=== PATIENT | male | born 1955 | race Caucasian/White ===

== ENCOUNTER 2018-12-18 15:00 | Outpatient (RCR) | payer BC, SELFPAY ==
--- NOTE | 2018-11-25 15:46 | HP.PTEVAL ---
Patient's Visit Information SHEA MULLIGAN is a 63 year old M referred to Physical Therapy by RON WILSON with a diagnosis of R tKA. Date of Evaluation: 11/25/18 Physical Therapist: Jose Roberto Ramos, GISELLAT, OCS, CSCS - Visit Plan Frequency: 3x /Week Duration: 4-6 Weeks Plan: 3x/week for 3-6 weeks for : 1. patellar mobs and R knee ROM, stretch HS and quads. 2. R knee strength and progression of gait/steps. 3. ice as needed. 4. 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 - Subjective Findings: Had R TKA 11/10 at [facility] Dr. Wilson. Had bone on bone degeneration and causing pain. It si OK now. Pain is way down R knee. Bending hurts 11/22 but comfy at rest.Sleeping OK now but was up at first. HEP: SAQ, SLR, HS, LAQ, heel raises standing, stadning hip ex. Using wh walker to get around most of time, uses it for balance. Has cane at home. Dresses self, bathroom I. 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 Needs to be on feet all day at work. Hobbies include taking care of the yard. Has steps at home doing just L leg. - Pain R knee Pain Intensity (Out of 10): 0 Pain Intensity Range: 0, 3 - Objective Walks with wh walker I needing VC to bend R knee at swing. Using cane needs cues to put in L hand but mod I, without AD on firm flat surface does well adn I. FGA performed see score. Steps are using L only and needs rail. R knee AROM 85( 95 aftter h) eel slides and 0 adn L knee 0-106, patella stiff on R side inferior . HIP adn nkle aROM WFL B, tightness in B HS adn B gastroc present. Strength in hips 4/5 B. knee ext 3+R and 4 L, HS 3+ R adn 4 L. ankles 4+ B in all directions. incision has a couple steristrips in place, is dry and healing well, no signs of excessive heat or swelling. - homans. Transfers table and chair I with UE. 5 degree lag with SLR today on R. - Balance Scores Functional Gait Assessment Score: 23 % Disability: 23.3400 - Goals Goal 1:: AROM 0-115 R knee to make steps easier Goal Time Frame: 4-6 Weeks Goal 2:: Steps reciprocal without rail Goal Time Frame: 4-6 Weeks Goal 3:: Pt feel back to 90% of activity and ready to tolerate working on feet all day. Goal Time Frame: 4-6 Weeks Goal 4:: Community walking without AD Goal Time Frame: 2-4 Weeks - Rehabilitation Potential Physical Therapy Diagnosis: s/p R TKA Rehabilitation Potential: Good - Anticipated Interventions Patient/Client Instruction: Educate patient on: Condition, Plan of Care For the Purpose of:: To decrease pain, To increase ROM, To improve nutrient delivery to tissue, To increase tolerance to activity/condition/position Therapeutic Exercise to Include: Strength training, Balance training, Flexibilty training, Gait and locomotor training, Passive ROM, Active ROM For the Purpose of:: To decrease pain, To improve muscle performance and motor function, To increase tolerance to activity/condition/position, To improve ability of physical actions for home/community/work/leisure Manual Therapy Techniques to Include: Mobilization, Passive ROM For the Purpose of:: To increase ROM Cryotherapy (ice pack, ice massage): Yes For the Purpose of:: To decrease swelling/inflammation Thank you for the opportunity to evaluate your patient. For Medicare and Medicare HMO plans, please review the plan of care and approve it. It will need to be FAXED BACK to us at [phone] for Medicare purposes. For Medicare only, by signing this I certify the plan of care. Please let me know if there are questions or concerns regarding this plan of care. Physician Signature: Date:
--- NOTE | 2018-12-18 15:58 | HP.PTDCSUM ---
HP - PT D/C Summary It has been my pleasure to treat SHEA MULLIGAN under orders from RON WILSON, for the diagnosis of R tKA for a total of 9 visit(s). Discharge Date: Please see the following information for a summary of their discharge status. - Subjective Subjective: Not much pain 10/22. Sleeping OK but it aches at night. Taking arthritis pain meds. No AD at home. Sometimes out adn about. Wants to do more yardwork. Basic ADLs are I. Doing ex daily at home. - Pain R knee Pain Intensity (Out of 10): 0 - Overall Improvement % Improvement: 90 - Objective Objective/Function: 0-115 AROM. 4+/5 stretngth. Good patellar mobility,s lightly stiff up and down. Walks well with slight R trendelenberg. steps are reciprocal without rail up and down is slightly more safe with one rail. DOING WELL, WANTS TO BE DONE WITH PT AND DOING WELL ENOUGH FOR THIS TO HAPPEN. WILL COTNINUE STRENGTH AT HOME IN PREP FOR RETURN TO WORK. - Goals Goal 1:: AROM 0-115 R knee to make steps easier Goal Progress: Goal Met Goal 2:: Steps reciprocal without rail Goal Progress: up ascend, OK, Goal 3:: Pt feel back to 90% of activity and ready to tolerate working on feet all day. Goal Progress: Progressing Goal 4:: Community walking without AD Goal Progress: Goal Met - Plan Plan: D/C(pt request). He is ready to be done. - D/C Information If there are questions or concerns regarding this patient's physical therapy, please feel free to call me at [phone]. Thank you for the referral of this patient. Sincerely, Jose Roberto Ramos, DPT, OCS, CSCS
== END 2018-12-18 17:00 | disposition home or self-care (01) ==
LOC: PT 15:00
PROVIDERS: Family Provider Nurse Practitioner Primary Care; PCP Nurse Practitioner Primary Care
DX: Z47.1 Aftercare following joint replacement surgery (principal)
CPT/HCPCS: 97110; 97162; 97530

== ENCOUNTER 2021-07-14 13:30 | Inpatient (IN) | payer MEDICARE, SELFPAY ==
[2021-07-14] VITALS (18 sets, daily range): BP systolic 85–130; BP diastolic 64–97; PULSE 78–122; RESP 21–31; TEMP 36.1–37.1; O2SAT 91–97; BMI 31.8; BMI 32.7
--- NOTE | 2021-07-14 13:46 | EKG12_ITS ---
Test Reason : CP Blood Pressure : / mmHG Vent. Rate : 115 BPM Atrial Rate : 115 BPM P-R Int : 138 ms QRS Dur : 082 ms QT Int : 308 ms P-R-T Axes : 012 -37 005 degrees QTc Int : 426 ms Sinus tachycardia Left axis deviation Poor R wave progression Abnormal ECG Confirmed by ARTIE CARR, KAREN ([id number]), general expeditor NAA MART ([id number]) on 07/16/2021 1:20:35 PM Referred By: HENRIK Confirmed By:KAREN ALVA MD
--- NOTE | 2021-07-14 13:48 | EX.ED.DYSGE1 ---
HPI History of Present Illness Chief Complaint: Shortness of Breath Detail of Chief Complaint: Shortness of breath and fatigue Informant: patient Narrative Narrative: Patient presents to the emergency department stating that he started with an illness about 2 weeks ago. Patient was diagnosed with COVID-19 5 days ago. Patient complains of a cough that is mostly nonproductive. He complains of generalized fatigue and weakness. Patient not on home O2 currently. On EMS arrival patient's O2 sat was 82%. Patient has history of hypertension and history of prior left nephrectomy. Patient denies history of PE or DVT. He does complain of pain in his chest with cough. Prior similar symptoms: No PFSH [facility] Medical History (Updated 07/14/21 @ 15:[address] Goldie Younger, DO) Hypertension Allergy/AdvReac Type Severity Reaction Status Date / Time No Known Allergies Allergy Verified 07/14/21 13:44 Social History Smoking Status: Never smoker ROS ROS ED Constitutional Constitutional ED: Reports systems reviewed and no addt'l complaints, except as documented and chills; Denies body ache(s) or change in weight Eyes Eyes: Denies acute decrease in peripheral vision, change in vision, double vision or loss of vision ENT ENT ED: Reports none; Denies ear pain, lip swelling, loss taste/smell, neck pain, otalgia or sore throat Cardiovascular Cardiovascular: Reports none; Denies abdominal pain, chest pain with activity, leg edema, lightheadedness, palpitations, rapid heart rate or syncope Respiratory/Chest Respiratory/Chest: Reports none, cough and dyspnea; Denies change in mental status, dry cough, hemoptysis, shortness of breath at rest or shortness of breath with exertion Gastrointestinal Gastrointestinal: Reports none; Denies abdominal pain, change in stool character, diarrhea, hematemesis, hematochezia, melena, rectal bleeding or vomiting Genitourinary Genitourinary ED: Reports none; Denies abdominal discomfort, anuria, dysuria, genital pain or polyuria Musculoskeletal Musculoskeletal: Reports none and myalgias; Denies arthralgias, back pain, difficulty walking, extremity pain or muscle weakness Integumentary Reports none; Denies abscess or rash Neurologic Neurologic: Reports none, headache(s) and weakness; Denies abnormal gait, confusion, focal weakness, frequent falls, loss of vision, numbness, paresthesias, radicular pain or vertigo Psychiatric Psychiatric: Reports systems reviewed and no addt'l complaints, except as documented and none; Denies behavioral changes, confusion, difficulty concentrating, hallucinations, suicidal ideation, tactile hallucinations or visual hallucinations Endocrine Endocrinology: Denies none, cold intolerance, excessive sweating, fatigue or heat intolerance Hematologic/Lymphatic Hematologic/Lymphatic: Reports none; Denies anemia, easy bleeding or easy bruising Allergic/Immunologic Allergic/Immunologic ED: Denies as per HPI, none, lip swelling, mouth swelling, throat swelling, tongue swelling or hives EXAM Physical Exam Const Vital Signs: 07/14/21 13:40 07/14/21 13:46 Temperature 98.6 F Temperature Source Temporal Pulse Rate 116 H Respiratory Rate 26 H Respiratory Effort Short of Breath Respiratory Pattern Tachypnea Blood Pressure 109/65 Blood Pressure Mean 79 Pulse Ox 93 Oxygen Delivery Method Non-Rebreather Oxygen Flow Rate (L/min) 15 Positive well nourished and well developed General Appearance ED: well developed and NAD HEENT Reports TM's clear and moist mucous membranes normocephalic and atraumatic; Negative for trauma or tenderness Tympanic Membrane ED: Yes TM's clear Eyes PERRL and EOMs intact bilaterally General Eye ED: Negative for pale conjunctiva or scleral icterus Neck no lymphadenopathy, supple and no JVD General: Negative for tenderness Chest Wall inspection of chest normal and palpation of chest normal Chest: Negative for tenderness Resp normal respiratory effort and clear to auscultation bilaterally Resp Narrative: Mild tachypnea Effort and Inspection: Negative for respiratory distress or pain with movement Auscultation: Negative for rhonchi, wheezes or diminished lung sounds Cardio regular rate, regular rhythm, S1 normal heart sound, S2 normal heart sound and no murmurs Rate: tachycardic Peripheral Pulses: pulses 2+ throughout GI normal to inspection, nondistended, normoactive bowel sounds, soft to palpation, non-tender, non-distended and no masses Back/Spine no CVA tenderness and no thoracic nor lumbar tenderness Extremity normal to inspection General Extremety ED: Negative for edema General Extremity: Negative for edema Neuro oriented x3, CN's II-XII intact bilaterally, no sensory deficits noted and gait normal Sensorium / Orientation: awake, alert, oriented to person, oriented to place and oriented to time Motor Exam: strength 5/5 throughout and strength abnormal Psych mental status grossly normal Skin no rashes or lesions noted and no wounds MDM MDM MDM Narrative Medical decision making narrative: Case discussed with hospitalist will evaluate patient for admission to ICU. Patient on a nonrebreather satting 91 to 92%. Lab Data Attestation: I reviewed the patient's lab results. Labs: Laboratory Results - last 24 hr 07/14/21 07/14/21 07/14/21 13:40 13:40 13:40 WBC 8.0 RBC 4.52 L Hgb 13.9 Hct 43.0 MCV 95.1 H MCH 30.8 MCHC 32.3 RDW Std Deviation 49.1 H RDW Coeff of Uli 13.9 Plt Count 269 MPV 10.5 Immature Gran % (Auto) 1.100 H Neut % (Auto) 84.2 H Lymph % (Auto) 7.7 L Morgan % (Auto) 6.9 Eos % (Auto) 0.0 Baso % (Auto) 0.1 Absolute Neuts (auto) 6.8 Absolute Lymphs (auto) 0.62 L Nucleated RBC % 0 Differential Comment SCANNED Reactive Lymphocytes 1+ D-Dimer Quant (PE/DVT) Cancelled Sodium Cancelled Potassium Cancelled Chloride Cancelled Carbon Dioxide Cancelled Anion Gap Cancelled BUN Cancelled Creatinine Cancelled Estim Creat Clear Calc Cancelled Est GFR (MDRD) Af Amer Cancelled Est GFR (MDRD) Non-Af Cancelled BUN/Creatinine Ratio Cancelled Glucose Cancelled Lactic Acid Calcium Cancelled 07/14/21 07/14/21 07/14/21 13:40 14:23 14:23 WBC RBC Hgb Hct MCV MCH MCHC RDW Std Deviation RDW Coeff of Uli Plt Count MPV Immature Gran % (Auto) Neut % (Auto) Lymph % (Auto) Morgan % (Auto) Eos % (Auto) Baso % (Auto) Absolute Neuts (auto) Absolute Lymphs (auto) Nucleated RBC % Differential Comment Reactive Lymphocytes D-Dimer Quant (PE/DVT) Cancelled Sodium 137 Potassium 5.0 Chloride 104 Carbon Dioxide 25.0 Anion Gap 8 BUN 33 H Creatinine 1.31 H Estim Creat Clear Calc 56.50 Est GFR (MDRD) Af Amer 70 Est GFR (MDRD) Non-Af 58 L BUN/Creatinine Ratio 25.2 H Glucose 100 Lactic Acid 1.5 Calcium 8.6 Radiography Diagnostic Testing: Radiology Impression Chest X-Ray 07/14/21 14:12 IMPRESSION: Bilateral airspace disease which may represent pneumonia. at 1448 Reported and signed by: Neo Gracia MD Electronically Signed: Neo Gracia MD at 14:47 EDT Tel , Service support , 1 view chest x-ray obtained in interpreted by myself as bilateral infiltrates with an elevated left hemidiaphragm. Radiology in agreement. EKG Initial EKG: Attestation: I personally reviewed and interpreted this EKG as follows: Comments: Sinus rhythm with a ventricular rate of 115 bpm Discharge Plan Triage Chief Complaint: Shortness of Breath ED Provider: Goldie Younger Dx/Rx/DC Orders Clinical Impression: Pneumonia due to 2019 novel coronavirus, Hypoxemia Primary Care Provider: Silvana Langley NP Referrals: Silvana Langley NP, [employer] [Primary Care Provider] - Disposition Disposition: Acute Care Hospital [facility]
[2021-07-14 14:08] LABS: Absolute Lymphocyte Count 0.62 X10^3/uL (0.83-4.51); Absolute Neutrophil Count 6.8 X10^3/uL (2.0-7.7); Basophil# 0.01 X10^3/uL; Basophil% 0.1 % (0-1); Hemoglobin 13.9 g/dL (13.0-16.5); Lymphocyte # 0.62 X10^3/ul (0.83-4.51); Lymphocyte % 7.7 % (19-41); Mean Corp Hgb Conc 32.3 g/dL (32-36); Mean Corpuscular Hgb 30.8 pg (27.0-32.0); Mean Corpuscular Volume 95.1 fL (80-94); Mean Platelet Vol. 10.5 fl (6.2-12.0); Monocyte# 0.55 X10^3/uL; Monocyte% 6.9 % (0-10); NRBC Flagged by Analyzer 0 % (0-5); Neutrophil # 6.75 X10^3/uL (2.7-7.7); Neutrophil % 84.2 % (47-70); POSITIVE MORPHOLOGY YES; Platelet Count 269 K/mm3 (150-450); RBC Distribution Width CV 13.9 % (11.6-14.6); RBC Distribution Width SD 49.1 fl (35.1-43.9); Red Blood Count 4.52 M/mm3 (4.6-6.2)
--- NOTE | 2021-07-14 14:12 | RAD_ITS ---
EXAM: XR CHEST, 1 VIEW : 1955 CLINICAL INDICATION: dyspnea TECHNIQUE: Frontal view of the chest. This report was created using [employer] report generation technology. COMPARISON: None. FINDINGS: LUNGS AND PLEURAL SPACES: There is airspace disease seen within the right upper and left lower lobe. No pneumothorax. No effusion. HEART: Unremarkable. Cardiac silhouette not enlarged. MEDIASTINUM: Central airways and mediastinal contour are unremarkable. BONES/JOINTS: Unremarkable. SOFT TISSUES: Unremarkable. UPPER ABDOMEN: There is mild elevation of the left hemidiaphragm. RAD/Chest 1 View (Portable) IMPRESSION: Bilateral airspace disease which may represent pneumonia. at 1448 Reported and signed by: Neo Gracia MD Electronically Signed: Neo Gracia MD at 14:47 EDT Tel , Service support ,
[2021-07-14 14:13] LABS: Differential Indicated SCAN CRITERIA MET
[2021-07-14] MEDS: dexAMETHasone 4 MG Tablet 6 MG PO (14:19)
[2021-07-14] MEDS: 0.9% Normal Saline 1,000 ML 150 ML IV (14:20)
[2021-07-14 14:39] LABS: Lactic Acid 1.5 mmol/L (0.4-1.9)
[2021-07-14 14:41] LABS: Differential Comment SCANNED; Reactive Lymphocyte 1+
[2021-07-14 14:59] LABS: Anion Gap 8 (5-15); BUN 33 mg/dL (7-18); BUN/Creat Ratio 25.2 RATIO (10-20); Calcium,Total 8.6 mg/dL (8.5-10.1); Chloride 104 mmol/L (98-107); Creatinine, Serum 1.31 mg/dL (0.70-1.30); EST Glomerular Filtration Rate 58 mL/min (>60); Est Glom Filt Rate - Afr Amer 70 mL/min (>60); Glucose 100 mg/dL (74-106); Sodium Level 137 mmol/L (136-145)
--- NOTE | 2021-07-14 15:11 | NURSING ---
DR DIVINA HOWELL
--- NOTE | 2021-07-14 15:16 | PCM.HP.STD ---
HPI - General General Date of Admission: 07/14/21 Date of Service: 07/14/21 HPI Narrative SHEA MULLIGAN, is a 65 M who presents with progressive shortness of breath ongoing for about 2 weeks. He tested positive for Covid at an outside urgent care. Patient admits to low-grade fever and chills as well as diarrhea. His is also sick. He denied any dizziness or palpitations. His oxygen saturation was 82% when the EMS picked him up. He improved on the nonrebreather mask. Chest x-ray showed bilateral airspace disease. There is elevation of the left hemidiaphragm [facility] Medical History Hypertension Allergy/AdvReac Type Severity Reaction Status Date / Time No Known Allergies Allergy Verified 07/14/21 13:44 no significant family history Surgical History (Updated 07/14/21 @ 15:[address] Erica Souza MD) H/O knee surgery History of kidney surgery Social History (Updated 07/14/21 @ 15:[address] Erica Souza MD) household members: spouse Smoking Status: Never smoker alcohol intake: never substance use type: does not use ROS ROS Narrative Constitutional: Reports: Malaise, Weakness, Fatigue, Anorexia, Chills, Fever, Denies: Night Sweats, Weight Change Eyes: Denies: Blurred vision, Cataracts, Conjunctivae Inflammation, Pain, Redness, Vision Change HEENT: Denies: Difficulty Hearing, Difficulty Swallowing, Head Aches, Hearing Changes, Sinus Congestion, Sinus Drainage Cardiovascular: Denies: Chest Pain, Orthopnea, Palpitations Respiratory: Admits to: Cough, Shortness of breath at rest, Sputum production Gastrointestinal: Admits to diarrhea denies: Abdominal Pain, Nausea, Vomiting Genitourinary: Denies: Dysuria Musculoskeletal: Denies: Joint Pain, Joint stiffness, Joint swelling, Joint Tenderness Skin: Denies: Rash, Wounds Neurological: Denies: Numbness, Tingling, Focal weakness Vital Signs Vital Signs Vital Signs: 07/14/21 13:40 07/14/21 13:46 Temperature 98.6 F Temperature Source Temporal Pulse Rate 116 H Respiratory Rate 26 H Respiratory Effort Short of Breath Respiratory Pattern Tachypnea Blood Pressure 109/65 Blood Pressure Mean 79 Pulse Ox 93 Oxygen Delivery Method Non-Rebreather Oxygen Flow Rate (L/min) 15 Weight Weight: 100.9 kg Body Mass Index (BMI) 31.8 Physical Exam Narrative Physical exam: General: Alert, Oriented x3, Cooperative, in mild respiratory distress, on 15 L of oxygen, having hiccups HEENT: Atraumatic Oral: Dry mucosa Neck: Supple Lungs: Diminished to auscultation Cardiovascular: HS I+II, regular, no murmurs Abdomen: Bowel Sounds Present, Soft, Non Tender Extremities: No edema Results Lab / Micro Data Result Diagrams: 07/14/21 13:40 07/14/21 14:23 Labs: Laboratory Results - last 24 hr 07/14/21 13:40: WBC 8.0, RBC 4.52 L, Hgb 13.9, Hct 43.0, MCV 95.1 H, MCH 30.8, MCHC 32.3, RDW Std Deviation 49.1 H, RDW Coeff of Uli 13.9, Plt Count 269, MPV 10.5, Immature Gran % (Auto) 1.100 H, Neut % (Auto) 84.2 H, Lymph % (Auto) 7.7 L, [place] % (Auto) 6.9, Eos % (Auto) 0.0, Baso % (Auto) 0.1, Absolute Neuts (auto) 6.8, Absolute Lymphs (auto) 0.62 L, Nucleated RBC % 0, Differential Comment SCANNED, Reactive Lymphocytes 1+ 07/14/21 13:40: D-Dimer Quant (PE/DVT) Cancelled 07/14/21 13:40: Sodium Cancelled, Potassium Cancelled, Chloride Cancelled, Carbon Dioxide Cancelled, Anion Gap Cancelled, BUN Cancelled, Creatinine Cancelled, Estim Creat Clear Calc Cancelled, Est GFR (MDRD) Af Amer Cancelled, Est GFR (MDRD) Non-Af Cancelled, BUN/Creatinine Ratio Cancelled, Glucose Cancelled, Calcium Cancelled 07/14/21 13:40: Lactic Acid 1.5 07/14/21 14:23: D-Dimer Quant (PE/DVT) Cancelled 07/14/21 14:23: Sodium 137, Potassium 5.0, Chloride 104, Carbon Dioxide 25.0, Anion Gap 8, BUN 33 H, Creatinine 1.31 H, Estim Creat Clear Calc 56.50, Est GFR (MDRD) Af Amer 70, Est GFR (MDRD) Non-Af 58 L, BUN/Creatinine Ratio 25.2 H, Glucose 100, Calcium 8.6 Radiology Impression Chest X-Ray 07/14/21 14:12 IMPRESSION: Bilateral airspace disease which may represent pneumonia. at 1448 Reported and signed by: Neo Gracia MD Electronically Signed: Neo Gracia MD at 14:47 EDT Tel , Service support , Assessment & Plan Assessment/Plan (1) Pneumonia due to 2019 novel coronavirus: (2) Acute respiratory failure with hypoxia: PLAN: 1. Acute hypoxic respiratory failure secondary to acute COVID-19 pneumonia Patient has been having symptoms for the past 2 weeks Diagnosed a week ago in an outside urgent care; will order rapid antigen to have a copy here Currently on 15 L of oxygen, tachypneic and tachycardic Will admit to ICU, Decadron, incentive spirometer Patient is outside the window for remdesivir Check urine Legionella, streptococcal antigen, sputum cultures Follow-up on blood cultures taken earlier Check D-dimer stat -pending 2. DVT prophylaxis Lovenox subcu I discussed and explained in details the various types of CODE STATUS-full code, DNR CCA, DNR CC. Patient chose full code. He wants aggressive care including intubation in the event of a cardiopulmonary arrest. Time spent discussing CODE STATUS 17 minutes Charges/Coding Visit Charges Inpatient E&M: 12618 Init Hosp L3 Procedures Hospitalists Procedures: 85084 Advncd Care Plan 30 Min
--- NOTE | 2021-07-14 15:17 | NURSING ---
[facility] HY[facility]XIA
--- NOTE | 2021-07-14 15:17 | NURSING ---
ICU 2
--- NOTE | 2021-07-14 16:00 | NURSING ---
Dr. Ortega made aware of Ddimer 2.0. NNO.
[2021-07-14] MEDS: ChlorproMAZINE 50 MG/2 ML Ampul 25 MG IV (16:22)
[2021-07-14] MEDS: Furosemide 40 MG/4 ML Vial IV (17:13)
[2021-07-14] MEDS: 0.9% Normal Saline 1,000 ML 50 ML IV (17:19)
[2021-07-14 17:21] LABS: BNP,B-Type NATRIURETIC PEPTIDE 22.2 pg/mL (0-100)
--- NOTE | 2021-07-14 18:08 | CT_ITS ---
STUDY: CTA CHEST REASON FOR EXAM: Male, 65 years old. pe RADIATION DOSAGE (If Supplied By Facility): CTDIvol = ( 12.65 ) mGy, DLP = ( 470.74 ) mGycm TECHNIQUE: The examination was performed with the intravenous administration of IV 100mL Isovue-370. Post-processing of the angiographic images was performed, with multiplanar reformation and 3D reconstruction. Individualized dose optimization techniques were used for this CT. COMPARISON: None. FINDINGS: Normal enhancement of the main pulmonary artery and right and left pulmonary arteries. Normal enhancement of the bilateral peripheral pulmonary arteries. There is no demonstrated pulmonary embolism. Normal thoracic aorta and visualized great vessels. There is no demonstrated aortic dissection. Normal heart and pericardium. Normal mediastinum. Normal hilar regions. Normal visualized trachea and bronchi. Bilateral patchy infiltrates and consolidations.. Normal chest wall structures. Normal osseous structures. Normal visualized upper abdomen. CT/CTA Chest W/WO Contrast IMPRESSION: No demonstrated pulmonary embolism or arterial dissection. Bilateral patchy infiltrates and consolidations. Electronically Signed: Jose Correa DO at 19:42 EDT Tel [phone], Service support ,
[2021-07-14] MEDS: Enoxaparin 30 MG/0.3 ML Syringe SC (21:05)
[2021-07-14] MEDS: guaiFENesin 10 ML UDC (200MG/10ML) PO (21:10)
[2021-07-15] VITALS (27 sets, daily range): BP systolic 98–130; BP diastolic 67–96; PULSE 61–101; RESP 17–28; TEMP 36.1–36.7; O2SAT 90–97
--- NOTE | 2021-07-15 00:34 | EKG12_ITS ---
Test Reason : EKG CHANGE Blood Pressure : / mmHG Vent. Rate : 076 BPM Atrial Rate : 076 BPM P-R Int : 138 ms QRS Dur : 082 ms QT Int : 386 ms P-R-T Axes : 019 -30 000 degrees QTc Int : 434 ms Poor data quality, interpretation may be adversely affected Normal sinus rhythm Left axis deviation Abnormal ECG When compared with ECG of 14-JUL-2021 13:39, Vent. rate has decreased BY 39 BPM Confirmed by LETY CARR, POLY ([id number]), assistant editor NAA MART ([id number]) on 07/24/2021 10:13:33 AM Referred By: KIRSTEN Confirmed By:POLY DAVIDSON MD
--- NOTE | 2021-07-15 00:58 | NURSING ---
ST elevation noted on Q4H monitor strip. EKG ordered per protocol. Pt has no c/o chest pain, no changes in SOB beyond. Compared admitting EKG and sent to Dr. Rico for analysis. No STEMI reported by physician.
[2021-07-15] MEDS: guaiFENesin 10 ML UDC (200MG/10ML) PO (01:04)
[2021-07-15 05:26] LABS: Absolute Lymphocyte Count 0.58 X10^3/uL (0.83-4.51); Absolute Neutrophil Count 3.9 X10^3/uL (2.0-7.7); Basophil# 0.02 X10^3/uL; Basophil% 0.4 % (0-1); Hematocrit 37.6 % (40-54); Hemoglobin 12.4 g/dL (13.0-16.5); Lymphocyte # 0.58 X10^3/ul (0.83-4.51); Lymphocyte % 11.7 % (19-41); Mean Corpuscular Hgb 31.2 pg (27.0-32.0); Mean Corpuscular Volume 94.7 fL (80-94); Mean Platelet Vol. 10.5 fl (6.2-12.0); Monocyte# 0.35 X10^3/uL; NRBC Flagged by Analyzer 0 % (0-5); Neutrophil % 78.5 % (47-70); POSITIVE DIFFERENTIAL YES; POSITIVE MORPHOLOGY YES; Platelet Count 247 K/mm3 (150-450); RBC Distribution Width CV 13.6 % (11.6-14.6); RBC Distribution Width SD 47.9 fl (35.1-43.9); Red Blood Count 3.97 M/mm3 (4.6-6.2)
[2021-07-15 05:27] LABS: Differential Indicated SCAN CRITERIA MET
[2021-07-15 05:44] LABS: ALB/GLOB Ratio 0.5 RATIO (0.9-2.4); AST(SGOT) 44 U/L (15-37); Alanine Aminotransfer ALT/SGPT 39 U/L (16-61); Albumin, Serum 2.1 g/dL (3.2-5.0); Alkaline Phosphatase 50 U/L (45-117); Anion Gap 6 (5-15); BUN 33 mg/dL (7-18); BUN/Creat Ratio 30.3 RATIO (10-20); Calcium,Total 8.1 mg/dL (8.5-10.1); Chloride 106 mmol/L (98-107); Creatinine, Serum 1.09 mg/dL (0.70-1.30); EST Glomerular Filtration Rate 72 mL/min (>60); Est Glom Filt Rate - Afr Amer 87 mL/min (>60); Estimated Creatinine Clearance 63.62 ml/min; Globulin 4.5 g/dL (2.2-4.2); Glucose 154 mg/dL (74-106); Potassium 4.4 mmol/L (3.5-5.1); Protein, Total 6.6 g/dL (6.4-8.2); Sodium Level 138 mmol/L (136-145)
--- NOTE | 2021-07-15 06:15 | CON.PCM.CC_ITS ---
Assessment & Plan Assessment/Plan (1) Pneumonia due to 2019 novel coronavirus: (2) Acute respiratory failure with hypoxia: PLAN: RECOMMENDATIONS: 1. Continue supplemental oxygen to maintain saturations at or above 90%. 2. Continue Decadron and Lovenox as ordered. 3. As needed diuretics to maintain euvolemic state. 4. Awake prone positioning was encouraged. 5. Encourage incentive spirometer use and mobilize patient as tolerated. IMPRESSIONS: 1. Acute hypoxemic respiratory failure secondary to COVID-19 pneumonia The patient presented to the hospital with approximately 2 weeks of progressive symptoms. CTA showed no evidence for PE. The patient is currently outside of the window for remdesivir. Plan to continue supplemental oxygen to maintain saturations at or above 90%. The patient will be continued on Decadron and Love nox as ordered. Awake prone positioning was encouraged. Intermittent use of diuretic to be entertained to maintain euvolemic state. Encourage incentive spirometer use and mobilize patient as tolerated. This note was generated with [employer] dictation software. It may contain incorrect words, spelling, and punctuation that were not noted in checking the note before signing. HPI Consult Data Date of Consult: 07/15/21 HPI Narrative Reason for Consultation: Acute hypoxemic respiratory failure secondary to COVID- 19 pneumonia HPI Narrative: The patient is a 65-year-old male, with a history as outlined below, who presented to the emergency department on July 14 with complaints of worsening dyspnea, fatigue and cough. The patient reported that his was recently ill with coronavirus. His symptoms initially began approximately 2 weeks ago. The patient is unvaccinated. He did test positive for coronavirus at an outside urgent care clinic. He does not utilize supplemental oxygen at his baseline. On presentation to the emergency department, the patient was noted to be afebrile and hemodynamically stable. D-dimer was elevated to 2.0. Chemistry profile was notable for a creatinine of 1.31. CTA chest showed no evidence for PE. Patchy bilateral airspace disease was noted. Rapid coronavirus antigen testing was positive on July 14. The patient was subsequently placed on Decadron and prophylactic Lovenox. He was admitted to the medical intensive care unit for further management. [facility] Medical History Hypertension Allergy/AdvReac Type Severity Reaction Status Date / Time No Known Allergies Allergy Verified 07/14/21 13:44 Family History no significant family his Surgical History (Updated 07/14/21 @ 15:[address] Erica Souza MD) H/O knee surgery History of kidney surgery Social History (Updated 07/14/21 @ 15:[address] Erica Souza MD) household members: spouse Smoking Status: Never smoker alcohol intake: never substance use type: does not use ROS Constitutional Constitutional: Reports chills, fatigue, malaise and weakness Eyes Eyes: Denies blurry vision or change in vision ENT HEENT: Denies dizziness, dysphagia, loss taste/smell or nasal congestion Cardiovascular Cardiovascular: Reports dyspnea; Denies chest pain or dizziness Respiratory/Chest Respiratory/Chest: Reports cough and dyspnea Gastrointestinal Gastrointestinal: Denies abdominal pain, diarrhea, nausea or vomiting Genitourinary Genitourinary: Denies difficulty urinating Musculoskeletal Musculoskeletal: Denies arthralgias, back pain or joint pain Integumentary Integumentary: Denies lesions, rash or skin ulcer Neurologic Neurologic: Denies abnormal gait or abnormal speech Psychiatric Psychiatric: Denies anxiety or depression Endocrine Endocrinology: Reports fatigue Hematologic/Lymphatic Hematologic/Lymphatic: Denies easy bleeding or easy bruising Physical Exam Const alert and no apparent distress General Appearance: cooperative Nutritional Appearance: obese HEENT normocephalic, head/scalp atraumatic and moist oral mucous membranes Eyes PERRL and EOMs intact bilaterally Neck supple General: trachea midline Chest inspection of chest normal Resp Effort and Inspection: tachypneic Auscultation: diminished lung sounds; Negative for rales, rhonchi or wheezes Cardio regular rate and regular rhythm GI normal to inspection, nondistended, normoactive bowel sounds Extremity no clubbing, cyanosis or edema Skin no rashes or lesions noted Neuro moves all extremities and no focal motor deficits Psych cooperative and affect normal Lab / Micro Data Result Diagrams: 07/15/21 05:13 07/15/21 05:13 Labs: Laboratory Results - last 24 hr 07/14/21 13:40: WBC 8.0, RBC 4.52 L, Hgb 13.9, Hct 43.0, MCV 95.1 H, MCH 30.8, MCHC 32.3, RDW Std Deviation 49.1 H, RDW Coeff of Uli 13.9, Plt Count 269, MPV 10.5, Immature Gran % (Auto) 1.100 H, Neut % (Auto) 84.2 H, Lymph % (Auto) 7.7 L , [place] % (Auto) 6.9, Eos % (Auto) 0.0, Baso % (Auto) 0.1, Absolute Neuts (auto) 6.8, Absolute Lymphs (auto) 0.62 L, Nucleated RBC % 0, Differential Comment SCANNED, Reactive Lymphocytes 1+ 07/14/21 13:40: D-Dimer Quant (PE/DVT) Cancelled 07/14/21 13:40: Sodium Cancelled, Potassium Cancelled, Chloride Cancelled, Carbon Dioxide Cancelled, Anion Gap Cancelled, BUN Cancelled, Creatinine Cancelled, Estim Creat Clear Calc Cancelled, Est GFR (MDRD) Af Amer Cancelled, Est GFR (MDRD) Non-Af Cancelled, BUN/Creatinine Ratio Cancelled, Glucose Cancelled, Calcium Cancelled 07/14/21 13:40: Lactic Acid 1.5 07/14/21 13:40: B-Natriuretic Peptide 22.2 07/14/21 14:23: D-Dimer Quant (PE/DVT) Cancelled 07/14/21 14:23: Sodium 137, Potassium 5.0, Chloride 104, Carbon Dioxide 25.0, Anion Gap 8, BUN 33 H, Creatinine 1.31 H, Estim Creat Clear Calc 56.50, Est GFR (MDRD) Af Amer 70, Est GFR (MDRD) Non-Af 58 L, BUN/Creatinine Ratio 25.2 H, Glucose 100, Calcium 8.6 07/14/21 15:00: D-Dimer Quant (PE/DVT) 2.00 H* 07/14/21 16:50: Procalcitonin 0.30 H 07/15/21 05:13: WBC 5.0, RBC 3.97 L, Hgb 12.4 L, Hct 37.6 L, MCV 94.7 H, MCH 31.2, MCHC 33.0, RDW Std Deviation 47.9 H, RDW Coeff of Uli 13.6, Plt Count 247, MPV 10.5, Immature Gran % (Auto) 2.400 H, Neut % (Auto) 78.5 H, Lymph % (Auto) 11.7 L, [place] % (Auto) 7.0, Eos % (Auto) 0.0, Baso % (Auto) 0.4, Absolute Neuts (auto) 3.9, Absolute Lymphs (auto) 0.58 L, Nucleated RBC % 0 07/15/21 05:13: Sodium 138, Potassium 4.4, Chloride 106, Carbon Dioxide 26.0, Anion Gap 6, BUN 33 H, Creatinine 1.09, Estim Creat Clear Calc 63.62, Est GFR (MDRD) Af Amer 87, Est GFR (MDRD) Non-Af 72, BUN/Creatinine Ratio 30.3 H, Glucose 154 H, Calcium 8.1 L, Total Bilirubin 0.40, AST 44 H, ALT 39, Alkaline Phosphatase 50, Total Protein 6.6, Albumin 2.1 L, Globulin 4.5 H, Albumin /Globulin Ratio 0.5 L Micro: Microbiology 07/14/21 20:15 Stool C. difficile DNA Amplification - Final 07/14/21 16:10 Mucosa - Nasopharyngeal Respiratory Panel (PCR) - Final 07/14/21 17:25 Urine, Clean Catch Legionella Antigen - Final 07/14/21 17:25 Urine, Clean Catch Streptococcus pneumoniae Antigen (M - Fi nal 07/14/21 15:54 Nasal Secretion SARS-CoV-2 Antigen (Rapid) - Final SARS-CoV-2 (COVID 19) Radiology Impression Chest X-Ray 07/14/21 14:12 IMPRESSION: Bilateral airspace disease which may represent pneumonia. at 1448 Reported and signed by: Neo Gracia MD Electronically Signed: Neo Gracia MD at 14:47 EDT Tel , Service support , Chest CTA 07/14/21 18:08 IMPRESSION: No demonstrated pulmonary embolism or arterial dissection. Bilateral patchy infiltrates and consolidations. Electronically Signed: Jose Correa DO at 19:42 EDT Tel [phone], Service support , Charges/Coding Visit Charges Inpatient E&M: 01677 Init Hosp L3
[2021-07-15 06:37] LABS: Atypical Lymphocyte RARE %; Differential Comment SCANNED
--- NOTE | 2021-07-15 07:28 | PCM.PN.HOSP ---
Subjective Subjective Patient is treated with symptoms of shortness of breath for about 2 weeks, progressively worsening low-grade fever with chills. Was tested positive for Covid in outside urgent care. Objective Data Objective Data Vital Signs: Vital Signs Temp Pulse Resp BP Pulse Ox 97.0 F L 74 20 H 124/84 H 93 07/15/21 02:00 07/15/21 06:00 07/15/21 06:00 07/15/21 06:00 07/15/21 06:00 Oxygen Flow Rate (L/min) 15 Oxygen Delivery Method Nasal Cannula Weight: 216 lb 14.958 oz Body Mass Index (BMI) 32.7 Intake & Output: Intake and Output for Last 24 Hours 07/13/21 07/14/21 07/15/21 23:59 23:59 23:59 Intake Total 1360.0 / 1360.0 400 / 400 Output Total 2225 / 2225 150 / 150 Balance -865.0 / -865.0 250 / 250 Lab / Micro Data Result Diagrams: 07/15/21 05:13 07/15/21 05:13 Labs: Laboratory Results - last 24 hr 07/14/21 13:40: WBC 8.0, RBC 4.52 L, Hgb 13.9, Hct 43.0, MCV 95.1 H, MCH 30.8, MCHC 32.3, RDW Std Deviation 49.1 H, RDW Coeff of Uli 13.9, Plt Count 269, MPV 10.5, Immature Gran % (Auto) 1.100 H, Neut % (Auto) 84.2 H, Lymph % (Auto) 7.7 L, [place] % (Auto) 6.9, Eos % (Auto) 0.0, Baso % (Auto) 0.1, Absolute Neuts (auto) 6.8, Absolute Lymphs (auto) 0.62 L, Nucleated RBC % 0, Differential Comment SCANNED, Reactive Lymphocytes 1+ 07/14/21 13:40: D-Dimer Quant (PE/DVT) Cancelled 07/14/21 13:40: Sodium Cancelled, Potassium Cancelled, Chloride Cancelled, Carbon Dioxide Cancelled, Anion Gap Cancelled, BUN Cancelled, Creatinine Cancelled, Estim Creat Clear Calc Cancelled, Est GFR (MDRD) Af Amer Cancelled, Est GFR (MDRD) Non-Af Cancelled, BUN/Creatinine Ratio Cancelled, Glucose Cancelled, Calcium Cancelled 07/14/21 13:40: Lactic Acid 1.5 07/14/21 13:40: B-Natriuretic Peptide 22.2 07/14/21 14:23: D-Dimer Quant (PE/DVT) Cancelled 07/14/21 14:23: Sodium 137, Potassium 5.0, Chloride 104, Carbon Dioxide 25.0, Anion Gap 8, BUN 33 H, Creatinine 1.31 H, Estim Creat Clear Calc 56.50, Est GFR (MDRD) Af Amer 70, Est GFR (MDRD) Non-Af 58 L, BUN/Creatinine Ratio 25.2 H, Glucose 100, Calcium 8.6 07/14/21 15:00: D-Dimer Quant (PE/DVT) 2.00 H* 07/14/21 16:50: Procalcitonin 0.30 H 07/15/21 05:13: WBC 5.0, RBC 3.97 L, Hgb 12.4 L, Hct 37.6 L, MCV 94.7 H, MCH 31.2, MCHC 33.0, RDW Std Deviation 47.9 H, RDW Coeff of Uli 13.6, Plt Count 247, MPV 10.5, Immature Gran % (Auto) 2.400 H, Neut % (Auto) 78.5 H, Lymph % (Auto) 11.7 L, [place] % (Auto) 7.0, Eos % (Auto) 0.0, Baso % (Auto) 0.4, Absolute Neuts (auto) 3.9, Absolute Lymphs (auto) 0.58 L, Nucleated RBC % 0, Differential Comment SCANNED, Atypical Lymphocytes RARE 07/15/21 05:13: Sodium 138, Potassium 4.4, Chloride 106, Carbon Dioxide 26.0, Anion Gap 6, BUN 33 H, Creatinine 1.09, Estim Creat Clear Calc 63.62, Est GFR (MDRD) Af Amer 87, Est GFR (MDRD) Non-Af 72, BUN/Creatinine Ratio 30.3 H, Glucose 154 H, Calcium 8.1 L, Total Bilirubin 0.40, AST 44 H, ALT 39, Alkaline Phosphatase 50, Total Protein 6.6, Albumin 2.1 L, Globulin 4.5 H, Albumin/Globulin Ratio 0.5 L Micro: Microbiology 07/14/21 20:15 Stool C. difficile DNA Amplification - Final 07/14/21 16:10 Mucosa - Nasopharyngeal Respiratory Panel (PCR) - Final 07/14/21 17:25 Urine, Clean Catch Legionella Antigen - Final 07/14/21 17:25 Urine, Clean Catch Streptococcus pneumoniae Antigen (M - Final 07/14/21 15:54 Nasal Secretion SARS-CoV-2 Antigen (Rapid) - Final SARS-CoV-2 (COVID 19) Radiography Diagnostic Testing: Radiology Impression Chest X-Ray 07/14/21 14:12 IMPRESSION: Bilateral airspace disease which may represent pneumonia. at 1448 Reported and signed by: Neo Gracia MD Electronically Signed: Neo Gracia MD at 14:47 EDT Tel , Service support , Chest CTA 07/14/21 18:08 IMPRESSION: No demonstrated pulmonary embolism or arterial dissection. Bilateral patchy infiltrates and consolidations. Electronically Signed: Jose Correa DO at 19:42 EDT Tel [phone], Service support , Physical Exam Narrative Complain of hicough. Denies chest pain/pressure or chest tightness. Mild dry cough. General: Alert, Oriented x3, Cooperative HEENT: Atraumatic, PERRLA, EOMI, Normocephalic Oral: No Gingival or Mucosal Lesions/ Ulcerations Neck: Supple, No JVD, Negative Carotid Bruits Lungs: Air entry diminished in bilateral lung bases. Bilateral coarse crepitation present. Hypoxia Cardiovascular: Regular rate, Regular Rhythm, Normal S1, Normal S2, No murmurs Abdomen: Bowel Sounds Present, Soft, Non Tender, Non-Distended : No renal angle tenderness. No suprapubic tenderness. Extremities: No edema, Capillary Refill Less than 3 Seconds Skin: No rashes, No breakdown Musculoskeletal: No Tenderness to Palpation of Joints or Extremities Neurological: Cranial nerves II-XII grossly intact, DTR 2+/4 and Symmetrical, Neuro grossly intact Psych/Mental Status: Normal Affect, Appropriate. Assessment & Plan Assessment/Plan (1) Acute respiratory failure with hypoxia: (2) Pneumonia due to 2019 novel coronavirus: PLAN: 1. Acute hypoxic respiratory failure secondary to acute COVID-19 pneumonia: Twelve-lead EKG reviewed and shows slight 0.5-minute elevation J-point in 1-lead aVL. It is isolated finding in 1 chest lead without chest pain or pressure. Patient denies any cardiac history of SD/ACS or rhythm disorder. Currently on 15 L of oxygen. Prone position encouraged. Urinary antigens are negative. Sputum culture pending. C. difficile negative. Respiratory panel negative. D-dimer elevated. On Lovenox 30 mg subcu twice daily. Inflammatory markers ordered. 2. DVT prophylaxis Lovenox subcu Clinical Impression(s) from Imaging Studies Chest X-Ray 07/14/21 14:12 IMPRESSION: Bilateral airspace disease which may represent pneumonia. Chest CTA 07/14/21 18:08 IMPRESSION: No demonstrated pulmonary embolism or arterial dissection. Bilateral patchy infiltrates and consolidations. Active Medications Albuterol Sulfate (Albuterol 2.5 Mg/3 Ml Vial.Neb.) 2.5 mg INHALATION Q2H PRN PRN PRN Reason: SOB/Wheezing Chlorhexidine Gluconate (Chlorhexidine Gluc 2% Cloth 1 Each Towelette) 1 each TOPICAL DAILY [facility] Dexamethasone (Dexamethasone 4 Mg Tablet) 6 mg PO DAILY [facility] Last Admin: 07/14/21 14:19 Dose: 6 mg Documented by: Enoxaparin Sodium (Enoxaparin 30 Mg/0.3 Ml Syringe) 30 mg SC BID [facility] Last Admin: 07/14/21 21:05 Dose: 30 mg Documented by: Guaifenesin (Guaifenesin 10 Ml Udc (200mg/10ml)) 10 ml PO Q4H PRN PRN PRN Reason: COUGH Last Admin: 07/15/21 01:04 Dose: 10 ml Documented by: Sodium Chloride () 250 mls @ 15 mls/hr IV .[id number] PRN PRN Reason: Saline Flush Sodium Chloride () 250 mls @ 15 mls/hr IV .[id number] PRN PRN Reason: Additional IVPB Infusion Influenza Virus Vaccine Quadrival (Influenza Vaccine (6mos+)/Pf 0.5 Ml Syringe) 0.5 ml IM .ONCE ONE Stop: 07/15/21 10:01 Senna/Docusate Sodium (Senna/Docusate Sodium 1 Tablet) 2 tablet PO BID PRN PRN Reason: Constipation Sodium Chloride (0.9% Saline Lock 10 Ml Syringe) 10 - 40 ml IV UD PRN PRN Reason: SALINE FLUSH Charges/Coding Visit Charges Inpatient E&M: 38472 [facility] Hosp L3
[2021-07-15 09:26] LABS: Phosphorus 3.6 mg/dL (2.5-4.9)
[2021-07-15 09:42] LABS: CPK Total, Creatine Kinase 86 U/L (39-308); LDH 462 U/L (87-241); Troponin-I HS 11 pg/mL (3.0-78.0)
[2021-07-15] MEDS: Enoxaparin 30 MG/0.3 ML Syringe SC ×2 (09:48→19:55)
[2021-07-15] MEDS: dexAMETHasone 4 MG Tablet 6 MG PO (09:48)
[2021-07-15] MEDS: CHLORHEXIDINE GLUC 2% CLOTH 1 EACH TOWELETTE TOPICAL (09:48)
[2021-07-15 11:21] LABS: Fibrinogen 586 mg/dl (203-444)
--- NOTE | 2021-07-15 12:50 | NURSING ---
Patient assisted to prone position in bed at 1000. At 1130 patient requested to get up to restroom and then to the chair. Patient tolerated prone position well. Use of incentive spirometer encouraged with return demonstration
[2021-07-16] VITALS (17 sets, daily range): BP systolic 120–134; BP diastolic 79–88; PULSE 48–104; RESP 18–24; TEMP 36.2–36.9; O2SAT 88–96
[2021-07-16 07:42] LABS: Absolute Lymphocyte Count 0.65 X10^3/uL (0.83-4.51); Absolute Neutrophil Count 7.4 X10^3/uL (2.0-7.7); Basophil# 0.02 X10^3/uL; Basophil% 0.2 % (0-1); Hematocrit 38.5 % (40-54); Hemoglobin 12.4 g/dL (13.0-16.5); Lymphocyte # 0.65 X10^3/ul (0.83-4.51); Lymphocyte % 7.1 % (19-41); Mean Corp Hgb Conc 32.2 g/dL (32-36); Mean Corpuscular Hgb 30.8 pg (27.0-32.0); Mean Corpuscular Volume 95.8 fL (80-94); Mean Platelet Vol. 10.4 fl (6.2-12.0); Monocyte# 0.67 X10^3/uL; Monocyte% 7.3 % (0-10); NRBC Flagged by Analyzer 0 % (0-5); Neutrophil # 7.37 X10^3/uL (2.7-7.7); Neutrophil % 80.9 % (47-70); Platelet Count 322 K/mm3 (150-450); RBC Distribution Width CV 13.3 % (11.6-14.6); RBC Distribution Width SD 47.1 fl (35.1-43.9); Red Blood Count 4.02 M/mm3 (4.6-6.2); White Blood Count 9.1 K/mm3 (4.4-11.0)
[2021-07-16 08:14] LABS: ALB/GLOB Ratio 0.4 RATIO (0.9-2.4); AST(SGOT) 42 U/L (15-37); Alanine Aminotransfer ALT/SGPT 42 U/L (16-61); Albumin, Serum 1.9 g/dL (3.2-5.0); Alkaline Phosphatase 51 U/L (45-117); Anion Gap 7 (5-15); BUN 27 mg/dL (7-18); BUN/Creat Ratio 29.9 RATIO (10-20); Calcium,Total 8.1 mg/dL (8.5-10.1); Chloride 108 mmol/L (98-107); EST Glomerular Filtration Rate 89 mL/min (>60); Est Glom Filt Rate - Afr Amer 107 mL/min (>60); Estimated Creatinine Clearance 77.06 ml/min; Globulin 4.6 g/dL (2.2-4.2); Glucose 143 mg/dL (74-106); Magnesium 2.4 mg/dL (1.6-2.6); Potassium 4.6 mmol/L (3.5-5.1); Protein, Total 6.5 g/dL (6.4-8.2); Sodium Level 138 mmol/L (136-145)
[2021-07-16] MEDS: dexAMETHasone 4 MG Tablet 6 MG PO (09:38)
[2021-07-16] MEDS: Enoxaparin 30 MG/0.3 ML Syringe SC ×2 (09:38→23:17)
[2021-07-16] MEDS: 0.9% Saline Lock 10 ML Syringe IV (09:39)
--- NOTE | 2021-07-16 09:54 | PCS.PANDOC ---
PANDEMIC DOCUMENTATION INITIATED: Date: 05/28/2021 Time: 190
[2021-07-16] MEDS: Albuterol 2.5 MG/3 ML VIAL.NEB. INHALATION (10:08)
--- NOTE | 2021-07-16 14:35 | PN.HOSP_ITS ---
Subjective Subjective Patient seen and examined. HE complained of hiccups. He felt his breathing was at baseline, and he had no other complaints. Review of systems is otherwise negative. He has remained hemodynamically stable and is on 10L of oxygen. Objective Data Objective Data Vital Signs: Vital Signs Temp Pulse Resp BP Pulse Ox 98.5 F 98 20 H 120/79 96 07/16/21 11:53 07/16/21 11:53 07/16/21 11:53 07/16/21 11:53 07/16/21 11:53 Oxygen Flow Rate (L/min) 10 Oxygen Delivery Method Nasal Cannula Weight: 216 lb 14.958 oz Body Mass Index (BMI) 32.7 Intake & Output: Intake and Output for Last 24 Hours 07/14/21 07/15/21 07/16/21 23:59 23:59 23:59 Intake Total 1360.0 / 1360.0 1424.17 / 1424.17 360 / 360 Output Total 2225 / 2225 650 / 650 1150 / 1150 Balance -865.0 / -865.0 774.17 / 774.17 -790 / -790 Lab / Micro Data Result Diagrams: 07/16/21 07:05 07/16/21 07:05 Labs: Laboratory Results - last 24 hr 07/16/21 07:05: WBC 9.1, RBC 4.02 L, Hgb 12.4 L, Hct 38.5 L, MCV 95.8 H, MCH 30.8, MCHC 32.2, RDW Std Deviation 47.1 H, RDW Coeff of Uli 13.3, Plt Count 322, MPV 10.4, Immature Gran % (Auto) 4.500 H, Neut % (Auto) 80.9 H, Lymph % (Auto) 7.1 L, [place] % (Auto) 7.3, Eos % (Auto) 0.0, Baso % (Auto) 0.2, Absolute Neuts (auto) 7.4, Absolute Lymphs (auto) 0.65 L, Nucleated RBC % 0 07/16/21 07:05: Sodium 138, Potassium 4.6, Chloride 108 H, Carbon Dioxide 23.0, Anion Gap 7, BUN 27 H, Creatinine 0.90, Estim Creat Clear Calc 77.06, Est GFR (MDRD) Af Amer 107, Est GFR (MDRD) Non-Af 89, BUN/Creatinine Ratio 29.9 H, Glucose 143 H, Calcium 8.1 L, Magnesium 2.4, Total Bilirubin 0.40, AST 42 H, ALT 42, Alkaline Phosphatase 51, Total Protein 6.5, Albumin 1.9 L, Globulin 4.6 H, Albumin/Globulin Ratio 0.4 L Micro: Microbiology 07/14/21 21:00 Sputum, Expectorated/Coughed Gram Stain - Final 07/14/21 21:00 Sputum, Expectorated/Coughed Respiratory Culture - Preliminary GNR Possible Haemophilus sp. Alpha hemolytic organism 07/14/21 20:15 Stool Enteric Bacteriology - Final 07/14/21 20:15 Stool C. difficile DNA Amplification - Final 07/14/21 16:10 Mucosa - Nasopharyngeal Respiratory Panel (PCR) - Final 07/14/21 17:25 Urine, Clean Catch Legionella Antigen - Final 07/14/21 17:25 Urine, Clean Catch Streptococcus pneumoniae Antigen (M - Fi nal 07/14/21 15:54 Nasal Secretion SARS-CoV-2 Antigen (Rapid) - Final SARS-CoV-2 (COVID 19) Physical Exam Const alert, oriented x3 and no apparent distress Exam Limitations: no limitations HEENT head/scalp atraumatic and moist oral mucous membranes Head and Scalp: normocephalic Eyes PERRL and EOMs intact bilaterally Neck no lymphadenopathy Resp Resp Narrative: diminished breath sounds bibasally, no wheezes or crackles. on 10L of oxygen. Cardio regular rate, regular rhythm, S1 normal heart sound, S2 normal heart sound and no murmurs GI normal to inspection, nondistended, normoactive bowel sounds, soft to palpation, non-tender and non-distended Extremity normal to inspection, full ROM and no clubbing, cyanosis or edema Peripheral Pulses: Yes pulses 2+ throughout Skin no rashes or lesions noted Neuro oriented x3, CN's II-XII intact bilaterally and moves all extremities Sensorium / Orientation: awake and alert Psych affect normal Assessment & Plan Assessment/Plan (1) Acute respiratory failure with hypoxia: (2) Pneumonia due to 2019 novel coronavirus: PLAN: #Acute hypoxic respiratory failure due to COVID 19 pneumonia * Patient now on 10 L of oxygen. * On breathing treatment and bronchodilators. * On p.o. Decadron. Out of window for remdesivir. * Symptoms started about [address] of the chest negative for PE. * Use diuretics to maintain euvolemic status as needed. * #DVT prophylaxis: Lovenox 30 mg twice daily. Charges/Coding Visit Charges Inpatient E&M: 82571 Subs Hosp L3
--- NOTE | 2021-07-16 14:54 | CASEMGMT ---
RN CM Assessment Patient is Covid positive. Called patient listed cell phone and answered- this adjusto writer operator introduced role of RN CM to patient. Patient is alert, oriented and able to participate in RN CM Assessment. Care providers, pharmacy, and demographics verified. Admit Dx: Respiratory failure, Covid Re-Admit: No Barriers/Issues: Patient is admitted with Covid here at [facility]. Patient 6yo grandson lives with them but is with his mother Melissa now. Grandson is negative for Covid. Dtr Melissa was Covid positive but is done with quarantine and is able to assist both patient and his while they are in quarantine and recovering. Patient was tested positive for Covid at [facility]- [address] [place] [address], . PCP: Silvana Langley NP Specialists: None [facility]erred Pharmacy[facility] Insurance: [facility] Rx Benefit: Yes LNOK: Yuni Sanches LW/HPOA: None. Aware can return as an outpatient to complete with director of social media marketing dept. Living Arrangements: Lives with and 6yo grandson in a mobile home, 3-4 steps to enter. ADL?s: Independent with ambulation and ADLs Transportation: Both patient and his drive, dtr Melissa will transport upon DC. DME: None HHC: None SNF: None Goal: Home and ok with HH PT if needs- discussed in network HH Agencies- No star ratings available per [facility] website. In network facilities: [facility], [facility]. Patient states that he has no preference for HH agency. Discussed In network DME provider [facility] or [facility]. Patient states [facility] is ok if Home O2 is needed. Does not prefer SNF (in network [facility])- prefers home with HH. DC PLAN: Home with Possible Home O2 ([facility]), possible HH. TESSA Miller
[2021-07-17] VITALS (14 sets, daily range): BP systolic 117–148; BP diastolic 87–99; PULSE 47–91; RESP 16–23; TEMP 36.4–36.7; O2SAT 92–96
--- NOTE | 2021-07-17 06:05 | PCS.PANDOC ---
PANDEMIC DOCUMENTATION INITIATED: Date: 05/28/2021 Time: 190
[2021-07-17 07:06] LABS: Hematocrit 40.2 % (40-54); Hemoglobin 13.3 g/dL (13.0-16.5); Mean Corp Hgb Conc 33.1 g/dL (32-36); Mean Corpuscular Hgb 31.3 pg (27.0-32.0); Mean Corpuscular Volume 94.6 fL (80-94); Mean Platelet Vol. 10.3 fl (6.2-12.0); POSITIVE COUNT YES; POSITIVE MORPHOLOGY YES; Platelet Count 397 K/mm3 (150-450); RBC Distribution Width CV 13.2 % (11.6-14.6); RBC Distribution Width SD 46.2 fl (35.1-43.9); Red Blood Count 4.25 M/mm3 (4.6-6.2)
[2021-07-17 07:17] LABS: Differential Indicated MANUAL DIFF
[2021-07-17 07:41] LABS: Lymphocyte 5 % (19-41); Metamyelocyte 7 % (0-1); Monocyte 6 % (0-10); Neutrophil-Band 3 % (0-5); Neutrophil-Segmented 79 % (47-70); Total Cells Counted 100 (MANUAL DIFF)
[2021-07-17 07:42] LABS: Absolute Neutrophil Count 9.1 X10^3/uL (2.0-7.7); Hypersegmented Neutrophils RARE; Neutrophil # 9.05 X10^3/uL (2.7-7.7); Platelet Estimate ADEQUATE (ADEQ); Red Cell Morphology NORM C+C NORMAL (NORM C&C)
[2021-07-17 07:43] LABS: Absolute Lymphocyte Count 0.55 X10^3/uL (0.83-4.51); Lymphocyte # 0.55 X10^3/ul (0.83-4.51)
[2021-07-17 07:44] LABS: ALB/GLOB Ratio 0.4 RATIO (0.9-2.4); AST(SGOT) 60 U/L (15-37); Alanine Aminotransfer ALT/SGPT 63 U/L (16-61); Alkaline Phosphatase 62 U/L (45-117); Anion Gap 10 (5-15); BUN 27 mg/dL (7-18); BUN/Creat Ratio 27.4 RATIO (10-20); Calcium,Total 8.1 mg/dL (8.5-10.1); Chloride 109 mmol/L (98-107); Creatinine, Serum 0.99 mg/dL (0.70-1.30); EST Glomerular Filtration Rate 80 mL/min (>60); Est Glom Filt Rate - Afr Amer 97 mL/min (>60); Estimated Creatinine Clearance 70.05 ml/min; Globulin 4.7 g/dL (2.2-4.2); Glucose 113 mg/dL (74-106); Potassium 4.9 mmol/L (3.5-5.1); Protein, Total 6.7 g/dL (6.4-8.2); Sodium Level 141 mmol/L (136-145)
[2021-07-17] MEDS: Enoxaparin 30 MG/0.3 ML Syringe SC ×2 (09:46→21:54)
[2021-07-17] MEDS: dexAMETHasone 4 MG Tablet 6 MG PO (09:47)
--- NOTE | 2021-07-17 11:31 | PN.CC_ITS ---
Assessment & Plan Assessment/Plan (1) Pneumonia due to 2019 novel coronavirus: (2) Acute respiratory failure with hypoxia: PLAN: RECOMMENDATIONS: 1. Continue supplemental oxygen to maintain saturations at or above 90%. 2. Continue Decadron and Lovenox as ordered. 3. As needed diuretics to maintain euvolemic state. Will give IV Lasix x1 today. 4. Awake prone positioning was encouraged. 5. Encourage incentive spirometer use and mobilize patient as tolerated. 6. Start antimicrobials given positive sputum culture results. IMPRESSIONS: 1. Acute hypoxemic respiratory failure secondary to COVID-19 and pneumococcal pneumonia The patient presented to the hospital with approximately 2 weeks of progressive symptoms. CTA showed no evidence for PE. The patient is currently outside of the window for remdesivir. Plan to continue supplemental oxygen to maintain saturations at or above 90%. The patient will be continued on Decadron and Lovenox as ordered. Awake prone positioning was encouraged. Intermittent use of diuretic to be entertained to maintain euvolemic state. Encourage incentive spirometer use and mobilize patient as tolerated. Given positive sputum culture results, the patient was started on antimicrobials, which I would recommend be continued for 7 days. This note was generated with [employer] dictation software. It may contain incorrect words, spelling, and punctuation that were not noted in checking the note before signing. Subjective Subjective The patient was seen and examined at the bedside this morning. Events from the last 24 hours have been reviewed. The patient is currently afebrile, hemodynamically stable and maintaining appropriate oxygen saturations on 8 L/min via nasal cannula. The patient is currently documented to be overall net -1.3 L for the hospitalization. He remains on Decadron and prophylactic Lovenox. Objective Data Objective Data The patient's most recent lab work, culture data and imaging studies have all been personally reviewed. Rapid coronavirus antigen testing was positive on July 14. Sputum culture is positive for gram-negative mukund, possible Haemophilus and Streptococcus pneumonia. Vital Signs: Vital Signs Temp Pulse Resp BP Pulse Ox 97.9 F 91 16 126/88 H 94 07/17/21 09:35 07/17/21 09:35 07/17/21 09:35 07/17/21 09:35 07/17/21 09:35 Oxygen Flow Rate (L/min) 8 Oxygen Delivery Method Nasal Cannula Weight: 99.4 kg Body Mass Index (BMI) 32.7 Intake & Output: Intake and Output for Last 24 Hours 07/15/21 07/16/21 07/17/21 23:59 23:59 23:59 Intake Total 1424.17 / 1424.17 720 / 720 120 / 120 Output Total 650 / 650 1850 / 1850 200 / 200 Balance 774.17 / 774.17 -1130 / -1130 -80 / -80 Lab / Micro Data Attestation: I reviewed the patient's lab results. Result Diagrams: 07/17/21 06:40 07/17/21 06:40 Labs: Laboratory Results - last 24 hr 07/17/21 06:40: WBC 11.0, RBC 4.25 L, Hgb 13.3, Hct 40.2, MCV 94.6 H, MCH 31.3, MCHC 33.1, RDW Std Deviation 46.2 H, RDW Coeff of Uli 13.2, Plt Count 397, MPV 10.3, Neut % (Auto) Not Reportable, Absolute Neuts (auto) 9.1 H, Absolute Lymphs (auto) 0.55 L, Total Counted 100, Neutrophils % (Manual) 79 H, Band Neutrophils % 3, Lymphocytes % (Manual) 5 L, Monocytes % (Manual) 6, Metamyelocytes % 7 H, Diff Path Review May foll, Hypersegmented Neuts RARE H, Platelet Estimate ADEQUATE, RBC Morphology NORM C+C 07/17/21 06:40: Sodium 141, Potassium 4.9, Chloride 109 H, Carbon Dioxide 22.0, Anion Gap 10, BUN 27 H, Creatinine 0.99, Estim Creat Clear Calc 70.05, Est GFR (MDRD) Af Amer 97, Est GFR (MDRD) Non-Af 80, BUN/Creatinine Ratio 27.4 H, Glucose 113 H, Calcium 8.1 L, Total Bilirubin 0.60, AST 60 H, ALT 63 H, Alkaline Phosphatase 62, Total Protein 6.7, Albumin 2.0 L, Globulin 4.7 H, Albumin/Globulin Ratio 0.4 L Micro: Microbiology 07/14/21 21:00 Sputum, Expectorated/Coughed Gram Stain - Final 07/14/21 21:00 Sputum, Expectorated/Coughed Respiratory Culture - Preliminary GNR Possible Haemophilus sp. Streptococcus pneumoniae 07/14/21 13:40 Blood Culture (Wb) - Left Hand Blood Culture - Preliminary No growth in 48 hours. 07/14/21 20:15 Stool Enteric Bacteriology - Final 07/14/21 20:15 Stool C. difficile DNA Amplification - Final 07/14/21 16:10 Mucosa - Nasopharyngeal Respiratory Panel (PCR) - Final 07/14/21 17:25 Urine, Clean Catch Legionella Antigen - Final 07/14/21 17:25 Urine, Clean Catch Streptococcus pneumoniae Antigen (M - Final 07/14/21 15:54 Nasal Secretion SARS-CoV-2 Antigen (Rapid) - Final SARS-CoV-2 (COVID 19) Physical Exam Const alert and no apparent distress General Appearance: cooperative Nutritional Appearance: obese HEENT normocephalic, head/scalp atraumatic and moist oral mucous membranes Eyes PERRL and EOMs intact bilaterally Neck supple General: trachea midline Chest inspection of chest normal Resp Auscultation: diminished lung sounds; Negative for rales, rhonchi or wheezes Cardio regular rate and regular rhythm GI normal to inspection, nondistended, normoactive bowel sounds Extremity no clubbing, cyanosis or edema Skin no rashes or lesions noted Neuro moves all extremities and no focal motor deficits Psych cooperative and affect normal Charges/Coding Visit Charges Inpatient E&M: 94894 Subs Hosp L3
[2021-07-17 12:03] LABS: Pathologist Review Reviewed
[2021-07-17] MEDS: Furosemide 40 MG/4 ML Vial IV (13:05)
--- NOTE | 2021-07-17 14:23 | PN.HOSP_ITS ---
Subjective Subjective Patient seen and examined. He had no active complaints today and had an uneventful night. Still remains on 8 L of oxygen. Review of systems otherwise negative. Objective Data Objective Data Vital Signs: Vital Signs Temp Pulse Resp BP Pulse Ox 98.1 F 90 16 120/89 H 94 07/17/21 13:08 07/17/21 13:08 07/17/21 13:08 07/17/21 13:08 07/17/21 13:57 Oxygen Flow Rate (L/min) 9 Oxygen Delivery Method Nasal Cannula Weight: 219 lb 2.232 oz Body Mass Index (BMI) 32.7 Intake & Output: Intake and Output for Last 24 Hours 07/15/21 07/16/21 07/17/21 23:59 23:59 23:59 Intake Total 1424.17 / 1424.17 720 / 720 650 / 650 Output Total 650 / 650 1850 / 1850 600 / 600 Balance 774.17 / 774.17 -1130 / -1130 50 / 50 Lab / Micro Data Result Diagrams: 07/17/21 06:40 07/17/21 06:40 Labs: Laboratory Results - last 24 hr 07/17/21 06:40: WBC 11.0, RBC 4.25 L, Hgb 13.3, Hct 40.2, MCV 94.6 H, MCH 31.3, MCHC 33.1, RDW Std Deviation 46.2 H, RDW Coeff of Uli 13.2, Plt Count 397, MPV 10.3, Neut % (Auto) Not Reportable, Absolute Neuts (auto) 9.1 H, Absolute Lymphs (auto) 0.55 L, Total Counted 100, Neutrophils % (Manual) 79 H, Band Neutrophils % 3, Lymphocytes % (Manual) 5 L, Monocytes % (Manual) 6, Metamyelocytes % 7 H, Diff Path Review Reviewed, Hypersegmented Neuts RARE H, Platelet Estimate ADEQUATE, RBC Morphology NORM C+C 07/17/21 06:40: Sodium 141, Potassium 4.9, Chloride 109 H, Carbon Dioxide 22.0, Anion Gap 10, BUN 27 H, Creatinine 0.99, Estim Creat Clear Calc 70.05, Est GFR (MDRD) Af Amer 97, Est GFR (MDRD) Non-Af 80, BUN/Creatinine Ratio 27.4 H, Glucose 113 H, Calcium 8.1 L, Total Bilirubin 0.60, AST 60 H, ALT 63 H, Alkaline Phosphatase 62, Total Protein 6.7, Albumin 2.0 L, Globulin 4.7 H, Albumin/Globulin Ratio 0.4 L Micro: Microbiology 07/14/21 21:00 Sputum, Expectorated/Coughed Gram Stain - Final 07/14/21 21:00 Sputum, Expectorated/Coughed Respiratory Culture - Preliminary Haemophilus influenzae Streptococcus pneumoniae 07/14/21 13:40 Blood Culture (Wb) - Left Hand Blood Culture - Preliminary No growth in 48 hours. 07/14/21 20:15 Stool Enteric Bacteriology - Final 07/14/21 20:15 Stool C. difficile DNA Amplification - Final 07/14/21 16:10 Mucosa - Nasopharyngeal Respiratory Panel (PCR) - Final 07/14/21 17:25 Urine, Clean Catch Legionella Antigen - Final 07/14/21 17:25 Urine, Clean Catch Streptococcus pneumoniae Antigen (M - Final 07/14/21 15:54 Nasal Secretion SARS-CoV-2 Antigen (Rapid) - Final SARS-CoV-2 (COVID 19) Physical Exam Const alert, oriented x3 and no apparent distress Exam Limitations: no limitations HEENT head/scalp atraumatic and moist oral mucous membranes Head and Scalp: normocephalic Eyes PERRL and EOMs intact bilaterally Neck no lymphadenopathy Resp Resp Narrative: diminished breath sounds bibasally, no wheezes or crackles. on 8L of oxygen. Cardio regular rate, regular rhythm, S1 normal heart sound, S2 normal heart sound and no murmurs GI normal to inspection, nondistended, normoactive bowel sounds, soft to palpation, non-tender and non-distended Extremity normal to inspection, full ROM and no clubbing, cyanosis or edema Skin no rashes or lesions noted Neuro oriented x3, CN's II-XII intact bilaterally and moves all extremities Sensorium / Orientation: awake and alert Psych affect normal Assessment & Plan Assessment/Plan (1) Acute respiratory failure with hypoxia: (2) Pneumonia due to 2019 novel coronavirus: PLAN: #Acute hypoxic respiratory failure due to COVID 19 pneumonia * Patient now down to 8L of oxygen. * On breathing treatment and bronchodilators. * On p.o. Decadron. Out of window for remdesivir. * sputum culture positive for H influenzae and Strep pneumoniae * started on IV ceftriaxone and azithromycin. * Symptoms started about [address] of the chest negative for PE. * Use diuretics to maintain euvolemic status as needed. * #DVT prophylaxis: Lovenox 30 mg twice daily. Charges/Coding Visit Charges Inpatient E&M: 74852 Subs Hosp L2
[2021-07-18] VITALS (11 sets, daily range): BP systolic 107–145; BP diastolic 70–97; PULSE 47–103; RESP 16–21; TEMP 36.4–36.6; O2SAT 92–96
[2021-07-18 07:14] LABS: Hematocrit 39.5 % (40-54); Hemoglobin 13.1 g/dL (13.0-16.5); Mean Corp Hgb Conc 33.2 g/dL (32-36); Mean Corpuscular Volume 93.6 fL (80-94); Mean Platelet Vol. 10.1 fl (6.2-12.0); POSITIVE COUNT YES; POSITIVE MORPHOLOGY YES; Platelet Count 392 K/mm3 (150-450); RBC Distribution Width CV 13.1 % (11.6-14.6); RBC Distribution Width SD 45.2 fl (35.1-43.9); Red Blood Count 4.22 M/mm3 (4.6-6.2); White Blood Count 10.9 K/mm3 (4.4-11.0)
[2021-07-18 07:16] LABS: Differential Indicated MANUAL DIFF
[2021-07-18 07:28] LABS: Platelet Estimate ADEQUATE (ADEQ); Red Cell Morphology NORM C+C NORMAL (NORM C&C)
[2021-07-18 07:31] LABS: Absolute Lymphocyte Count 0.98 X10^3/uL (0.83-4.51); Absolute Neutrophil Count 8.4 X10^3/uL (2.0-7.7); Lymphocyte 9 % (19-41); Metamyelocyte 3 % (0-1); Monocyte 9 % (0-10); Myelocyte 1 % (0-0); Neutrophil-Band 3 % (0-5); Neutrophil-Segmented 74 % (47-70); Promyelocyte 1 % (0-0)
[2021-07-18 07:45] LABS: ALB/GLOB Ratio 0.5 RATIO (0.9-2.4); AST(SGOT) 79 U/L (15-37); Alanine Aminotransfer ALT/SGPT 129 U/L (16-61); Alkaline Phosphatase 58 U/L (45-117); Anion Gap 6 (5-15); BUN 29 mg/dL (7-18); BUN/Creat Ratio 31.8 RATIO (10-20); Chloride 110 mmol/L (98-107); Creatinine, Serum 0.91 mg/dL (0.70-1.30); EST Glomerular Filtration Rate 88 mL/min (>60); Est Glom Filt Rate - Afr Amer 106 mL/min (>60); Estimated Creatinine Clearance 76.21 ml/min; Globulin 4.2 g/dL (2.2-4.2); Glucose 112 mg/dL (74-106); Potassium 4.3 mmol/L (3.5-5.1); Protein, Total 6.2 g/dL (6.4-8.2); Sodium Level 141 mmol/L (136-145)
[2021-07-18] MEDS: dexAMETHasone 4 MG Tablet 6 MG PO (09:56)
[2021-07-18] MEDS: Enoxaparin 30 MG/0.3 ML Syringe SC ×2 (09:56→20:15)
[2021-07-18 12:39] LABS: Pathologist Review Reviewed
--- NOTE | 2021-07-18 13:18 | PN.HOSP_ITS ---
Subjective Subjective Patient seen and examined. He had no active complaints today and felt well. Patient is down to 7 L of oxygen. Review of systems otherwise negative. He has remained hemodynamically stable. Objective Data Objective Data Vital Signs: Vital Signs Temp Pulse Resp BP Pulse Ox 97.9 F 91 18 118/90 H 94 07/18/21 10:54 07/18/21 10:54 07/18/21 10:54 07/18/21 10:54 07/18/21 10:54 Oxygen Flow Rate (L/min) 7 Oxygen Delivery Method Nasal Cannula Weight: 219 lb 9.286 oz Body Mass Index (BMI) 32.7 Intake & Output: Intake and Output for Last 24 Hours 07/16/21 07/17/21 07/18/21 23:59 23:59 23:59 Intake Total 720 / 720 1170 / 1170 550 / 550 Output Total 1850 / 1850 1400 / 1400 450 / 450 Balance -1130 / -1130 -230 / -230 100 / 100 Lab / Micro Data Result Diagrams: 07/18/21 06:50 07/18/21 06:50 Labs: Laboratory Results - last 24 hr 07/18/21 06:50: WBC 10.9, RBC 4.22 L, Hgb 13.1, Hct 39.5 L, MCV 93.6, MCH 31.0, MCHC 33.2, RDW Std Deviation 45.2 H, RDW Coeff of Uli 13.1, Plt Count 392, MPV 10.1, Neut % (Auto) Not Reportable, Absolute Neuts (auto) 8.4 H, Absolute Lymphs (auto) 0.98, Neutrophils % (Manual) 74 H, Band Neutrophils % 3, Lymphocytes % (Manual) 9 L, Monocytes % (Manual) 9, Metamyelocytes % 3 H, Myelocytes % 1 H, Promyelocytes % 1 H, Diff Path Review Reviewed, Platelet Estimate ADEQUATE, RBC Morphology NORM C+C 07/18/21 06:50: Sodium 141, Potassium 4.3, Chloride 110 H, Carbon Dioxide 25.0, Anion Gap 6, BUN 29 H, Creatinine 0.91, Estim Creat Clear Calc 76.21, Est GFR (MDRD) Af Amer 106, Est GFR (MDRD) Non-Af 88, BUN/Creatinine Ratio 31.8 H, Glucose 112 H, Calcium 8.0 L, Total Bilirubin 0.60, AST 79 H, ALT 129 H, Alkaline Phosphatase 58, Total Protein 6.2 L, Albumin 2.0 L, Globulin 4.2, Albumin/Globulin Ratio 0.5 L Micro: Microbiology 07/14/21 21:00 Sputum, Expectorated/Coughed Gram Stain - Final 07/14/21 21:00 Sputum, Expectorated/Coughed Respiratory Culture - Final Haemophilus influenzae Streptococcus pneumoniae 07/14/21 13:40 Blood Culture (Wb) - Left Hand Blood Culture - Preliminary No growth in 48 hours. 07/14/21 20:15 Stool Enteric Bacteriology - Final 07/14/21 20:15 Stool C. difficile DNA Amplification - Final 07/14/21 16:10 Mucosa - Nasopharyngeal Respiratory Panel (PCR) - Final 07/14/21 17:25 Urine, Clean Catch Legionella Antigen - Final 07/14/21 17:25 Urine, Clean Catch Streptococcus pneumoniae Antigen (M - Final 07/14/21 15:54 Nasal Secretion SARS-CoV-2 Antigen (Rapid) - Final SARS-CoV-2 (COVID 19) Physical Exam Const alert, oriented x3 and no apparent distress Exam Limitations: no limitations HEENT head/scalp atraumatic and moist oral mucous membranes Head and Scalp: normocephalic Eyes PERRL and EOMs intact bilaterally Neck no lymphadenopathy Resp Resp Narrative: diminished breath sounds bibasally, no wheezes or crackles. on 7L of oxygen. Cardio regular rate, regular rhythm, S1 normal heart sound, S2 normal heart sound and no murmurs GI normal to inspection, nondistended, normoactive bowel sounds, soft to palpation, non-tender and non-distended Extremity normal to inspection, full ROM and no clubbing, cyanosis or edema Peripheral Pulses: Yes pulses 2+ throughout Skin no rashes or lesions noted Neuro oriented x3, CN's II-XII intact bilaterally and moves all extremities Sensorium / Orientation: awake and alert Psych affect normal Assessment & Plan Assessment/Plan (1) Acute respiratory failure with hypoxia: (2) Pneumonia due to 2019 novel coronavirus: PLAN: #Acute hypoxic respiratory failure due to COVID 19 pneumonia * Patient now down to 7L of oxygen. * On breathing treatment and bronchodilators. * On p.o. Decadron. Out of window for remdesivir. * sputum culture positive for H influenzae and Strep pneumoniae * on IV ceftriaxone and azithromycin. * Symptoms started about [address] of the chest negative for PE. * Use diuretics to maintain euvolemic status as needed. * #DVT prophylaxis: Lovenox 30 mg twice daily. Charges/Coding Visit Charges Inpatient E&M: 05923 Subs Hosp L2
[2021-07-19] VITALS (13 sets, daily range): BP systolic 109–130; BP diastolic 77–98; PULSE 53–94; RESP 18–20; TEMP 36.4–37.1; O2SAT 83–96
[2021-07-19 06:50] LABS: Hematocrit 40.9 % (40-54); Hemoglobin 13.5 g/dL (13.0-16.5); Mean Corpuscular Volume 93.8 fL (80-94); Mean Platelet Vol. 10.1 fl (6.2-12.0); POSITIVE COUNT YES; POSITIVE MORPHOLOGY YES; Platelet Count 392 K/mm3 (150-450); RBC Distribution Width CV 13.2 % (11.6-14.6); RBC Distribution Width SD 45.8 fl (35.1-43.9); Red Blood Count 4.36 M/mm3 (4.6-6.2); White Blood Count 13.7 K/mm3 (4.4-11.0)
[2021-07-19 06:58] LABS: Differential Indicated MANUAL DIFF
[2021-07-19 07:24] LABS: ALB/GLOB Ratio 0.5 RATIO (0.9-2.4); AST(SGOT) 69 U/L (15-37); Alanine Aminotransfer ALT/SGPT 174 U/L (16-61); Alkaline Phosphatase 62 U/L (45-117); Anion Gap 5 (5-15); BUN 30 mg/dL (7-18); BUN/Creat Ratio 33.9 RATIO (10-20); Calcium,Total 8.3 mg/dL (8.5-10.1); Chloride 110 mmol/L (98-107); Creatinine, Serum 0.89 mg/dL (0.70-1.30); EST Glomerular Filtration Rate 91 mL/min (>60); Est Glom Filt Rate - Afr Amer 110 mL/min (>60); Estimated Creatinine Clearance 77.92 ml/min; Globulin 4.3 g/dL (2.2-4.2); Glucose 109 mg/dL (74-106); Potassium 4.7 mmol/L (3.5-5.1); Protein, Total 6.3 g/dL (6.4-8.2); Sodium Level 140 mmol/L (136-145)
[2021-07-19 08:11] LABS: Eosinophil 1 % (0-5); Lymphocyte 7 % (19-41); Metamyelocyte 5 % (0-1); Monocyte 11 % (0-10); Neutrophil-Segmented 76 % (47-70); Platelet Estimate ADEQUATE (ADEQ); Red Cell Morphology NORM C+C NORMAL (NORM C&C); Total Cells Counted 100 (MANUAL DIFF)
[2021-07-19 08:12] LABS: Absolute Lymphocyte Count 0.96 X10^3/uL (0.83-4.51); Absolute Neutrophil Count 10.4 X10^3/uL (2.0-7.7); Lymphocyte # 0.96 X10^3/ul (0.83-4.51)
[2021-07-19] MEDS: dexAMETHasone 4 MG Tablet 6 MG PO (10:40)
[2021-07-19] MEDS: Enoxaparin 30 MG/0.3 ML Syringe SC ×2 (10:40→20:08)
--- NOTE | 2021-07-19 11:28 | PN.HOSP_ITS ---
Subjective Subjective Patient seen and examined. He felt better and had no complaints today. Review of systems is otherwise negative. He is down to 3L of oxygen, but required 8L of oxygen with ambulation. Review of systems otherwise negative. Objective Data Objective Data Vital Signs: Vital Signs Temp Pulse Resp BP Pulse Ox 97.5 F L 91 20 H 109/77 91 07/19/21 10:35 07/19/21 10:35 07/19/21 10:35 07/19/21 10:35 07/19/21 10:56 Oxygen Flow Rate (L/min) [ 8 AMBULATING with Oxygen #3] Oxygen Flow Rate (L/min) [ 6 AMBULATING with Oxygen #2] Oxygen Flow Rate (L/min) [ 4 AMBULATING with Oxygen #1] Oxygen Flow Rate (L/min) [At 3 REST with Oxygen] Oxygen Flow Rate (L/min) 3 Oxygen Delivery Method Nasal Cannula Weight: 220 lb 7.396 oz Body Mass Index (BMI) 32.7 Intake & Output: Intake and Output for Last 24 Hours 07/17/21 07/18/21 07/19/21 23:59 23:59 23:59 Intake Total 1170 / 1170 1250 / 1250 Output Total 1400 / 1400 1050 / 1050 300 / 300 Balance -230 / -230 200 / 200 -300 / -300 Lab / Micro Data Result Diagrams: 07/19/21 06:00 07/19/21 06:00 Labs: Laboratory Results - last 24 hr 07/18/21 06:50: Diff Path Review Reviewed 07/19/21 06:00: WBC 13.7 H, RBC 4.36 L, Hgb 13.5, Hct 40.9, MCV 93.8, MCH 31.0, MCHC 33.0, RDW Std Deviation 45.8 H, RDW Coeff of Uli 13.2, Plt Count 392, MPV 10.1, Neut % (Auto) Not Reportable, Absolute Neuts (auto) 10.4 H, Absolute Lymphs (auto) 0.96, Total Counted 100, Neutrophils % (Manual) 76 H, Lymphocytes % (Manual) 7 L, Monocytes % (Manual) 11 H, Eosinophils % (Manual) 1, Metamyelocytes % 5 H, Diff Path Review May foll, Platelet Estimate ADEQUATE, RBC Morphology NORM C+C 07/19/21 06:00: Sodium 140, Potassium 4.7, Chloride 110 H, Carbon Dioxide 25.0, Anion Gap 5, BUN 30 H, Creatinine 0.89, Estim Creat Clear Calc 77.92, Est GFR (MDRD) Af Amer 110, Est GFR (MDRD) Non-Af 91, BUN/Creatinine Ratio 33.9 H, Glucose 109 H, Calcium 8.3 L, Total Bilirubin 0.30, AST 69 H, ALT 174 H, Alkaline Phosphatase 62, Total Protein 6.3 L, Albumin 2.0 L, Globulin 4.3 H, Albumin/Globulin Ratio 0.5 L Micro: Microbiology 07/14/21 21:00 Sputum, Expectorated/Coughed Gram Stain - Final 07/14/21 21:00 Sputum, Expectorated/Coughed Respiratory Culture - Final Haemophilus influenzae Streptococcus pneumoniae 07/14/21 13:40 Blood Culture (Wb) - Left Hand Blood Culture - Preliminary No growth in 48 hours. 07/14/21 20:15 Stool Enteric Bacteriology - Final 07/14/21 20:15 Stool C. difficile DNA Amplification - Final 07/14/21 16:10 Mucosa - Nasopharyngeal Respiratory Panel (PCR) - Final 07/14/21 17:25 Urine, Clean Catch Legionella Antigen - Final 07/14/21 17:25 Urine, Clean Catch Streptococcus pneumoniae Antigen (M - Final 07/14/21 15:54 Nasal Secretion SARS-CoV-2 Antigen (Rapid) - Final SARS-CoV-2 (COVID 19) Physical Exam Const alert, oriented x3 and no apparent distress Exam Limitations: no limitations HEENT head/scalp atraumatic and moist oral mucous membranes Head and Scalp: normocephalic Eyes PERRL and EOMs intact bilaterally Neck no lymphadenopathy Resp Resp Narrative: diminished breath sounds bibasally, no wheezes or crackles. on 3L of oxygen. Cardio regular rate, regular rhythm, S1 normal heart sound, S2 normal heart sound and no murmurs GI normal to inspection, nondistended, normoactive bowel sounds, soft to palpation, non-tender and non-distended Extremity normal to inspection, full ROM and no clubbing, cyanosis or edema Skin no rashes or lesions noted Neuro oriented x3, CN's II-XII intact bilaterally and moves all extremities Sensorium / Orientation: awake and alert Psych affect normal Assessment & Plan Assessment/Plan (1) Acute respiratory failure with hypoxia: (2) Pneumonia due to 2019 novel coronavirus: PLAN: #Acute hypoxic respiratory failure due to COVID 19 pneumonia * Patient now down to 3L of oxygen. * required 8L of oxygen with ambulation. * On breathing treatment and bronchodilators. * On p.o. Decadron. Out of window for remdesivir. * sputum culture positive for H influenzae and Strep pneumoniae * on IV ceftriaxone and azithromycin. * Symptoms started about [address] of the chest negative for PE. * Use diuretics to maintain euvolemic status as needed. * #DVT prophylaxis: Lovenox 30 mg twice daily. Disposition: for likely DC tomorrow if he is better and requires less oxygen with ambulation. Charges/Coding Visit Charges Inpatient E&M: 01477 Subs Hosp L2
--- NOTE | 2021-07-19 14:09 | PN.CC_ITS ---
Assessment & Plan Assessment/Plan (1) Pneumonia due to 2019 novel coronavirus: (2) Acute respiratory failure with hypoxia: PLAN: RECOMMENDATIONS: 1. Continue supplemental oxygen to maintain saturations at or above 90%. 2. Continue Decadron and Lovenox as ordered. 3. As needed diuretics to maintain euvolemic state. 4. Continue antimicrobials to complete 7-day treatment course. 5. Encourage incentive spirometer use and mobilize patient as tolerated. 6. Given improvement in oxygenation status, will sign off. Please call with any additional questions. IMPRESSIONS: 1. Acute hypoxemic respiratory failure secondary to COVID-19 and pneumococcal pneumonia The patient presented to the hospital with approximately 2 weeks of progressive symptoms. CTA showed no evidence for PE. The patient is currently outside of the window for remdesivir. Plan to continue supplemental oxygen to maintain saturations at or above 90%. The patient will be continued on Decadron and Lovenox as ordered. Awake prone positioning was encouraged. Intermittent use of diuretic to be entertained to maintain euvolemic state. Encourage incentive spirometer use and mobilize patient as tolerated. Given positive sputum culture results, the patient was started on antimicrobials, which I would recommend be continued for 7 days. This note was generated with [employer] dictation software. It may contain incorrect words, spelling, and punctuation that were not noted in checking the note before signing. Subjective Subjective The patient was seen and examined at the bedside this morning. Events from the last 24 hours have been reviewed. The patient is currently afebrile, hemodynamically stable and maintaining appropriate oxygen saturations on 3 L/min via nasal cannula. The patient is currently documented to be overall net -1.2 L for the hospitalization. He remains on Decadron and prophylactic Lovenox, along with antimicrobials. The patient does continue to desaturate with exertion. Objective Data Objective Data The patient's most recent lab work, culture data and imaging studies have all been personally reviewed. Rapid coronavirus antigen testing was positive on July 14. Sputum culture is positive for Streptococcus pneumonia and Haemophilus influenza. Vital Signs: Vital Signs Temp Pulse Resp BP Pulse Ox 97.5 F L 91 20 H 109/77 91 07/19/21 10:35 07/19/21 10:35 07/19/21 10:35 07/19/21 10:35 07/19/21 10:56 Oxygen Flow Rate (L/min) [ 8 AMBULATING with Oxygen #3] Oxygen Flow Rate (L/min) [ 6 AMBULATING with Oxygen #2] Oxygen Flow Rate (L/min) [ 4 AMBULATING with Oxygen #1] Oxygen Flow Rate (L/min) [At 3 REST with Oxygen] Oxygen Flow Rate (L/min) 3 Oxygen Delivery Method Nasal Cannula Weight: 100 kg Body Mass Index (BMI) 32.7 Intake & Output: Intake and Output for Last 24 Hours 07/17/21 07/18/21 07/19/21 23:59 23:59 23:59 Intake Total 1170 / 1170 1250 / 1250 290 / 290 Output Total 1400 / 1400 1050 / 1050 300 / 300 Balance -230 / -230 200 / 200 -10 / -10 Lab / Micro Data Attestation: I reviewed the patient's lab results. Result Diagrams: 07/19/21 06:00 07/19/21 06:00 Labs: Laboratory Results - last 24 hr 07/19/21 06:00: WBC 13.7 H, RBC 4.36 L, Hgb 13.5, Hct 40.9, MCV 93.8, MCH 31.0, MCHC 33.0, RDW Std Deviation 45.8 H, RDW Coeff of Uli 13.2, Plt Count 392, MPV 10.1, Neut % (Auto) Not Reportable, Absolute Neuts (auto) 10.4 H, Absolute Lymphs (auto) 0.96, Total Counted 100, Neutrophils % (Manual) 76 H, Lymphocytes % (Manual) 7 L, Monocytes % (Manual) 11 H, Eosinophils % (Manual) 1, Metamyelocytes % 5 H, Diff Path Review May , Platelet Estimate ADEQUATE, RBC Morphology NORM C+C 07/19/21 06:00: Sodium 140, Potassium 4.7, Chloride 110 H, Carbon Dioxide 25.0, Anion Gap 5, BUN 30 H, Creatinine 0.89, Estim Creat Clear Calc 77.92, Est GFR (MDRD) Af Amer 110, Est GFR (MDRD) Non-Af 91, BUN/Creatinine Ratio 33.9 H, Glucose 109 H, Calcium 8.3 L, Total Bilirubin 0.30, AST 69 H, ALT 174 H, Alkaline Phosphatase 62, Total Protein 6.3 L, Albumin 2.0 L, Globulin 4.3 H, Albumin/Globulin Ratio 0.5 L Micro: Microbiology 07/14/21 21:00 Sputum, Expectorated/Coughed Gram Stain - Final 07/14/21 21:00 Sputum, Expectorated/Coughed Respiratory Culture - Final Haemophilus influenzae Streptococcus pneumoniae 07/14/21 13:40 Blood Culture (Wb) - Left Hand Blood Culture - Preliminary No growth in 48 hours. 07/14/21 20:15 Stool Enteric Bacteriology - Final 07/14/21 20:15 Stool C. difficile DNA Amplification - Final 07/14/21 16:10 Mucosa - Nasopharyngeal Respiratory Panel (PCR) - Final 07/14/21 17:25 Urine, Clean Catch Legionella Antigen - Final 07/14/21 17:25 Urine, Clean Catch Streptococcus pneumoniae Antigen (M - Final 07/14/21 15:54 Nasal Secretion SARS-CoV-2 Antigen (Rapid) - Final SARS-CoV-2 (COVID 19) Physical Exam Const alert and no apparent distress General Appearance: cooperative Nutritional Appearance: obese HEENT normocephalic, head/scalp atraumatic and moist oral mucous membranes Eyes PERRL and EOMs intact bilaterally Neck supple General: trachea midline Chest inspection of chest normal Resp Auscultation: diminished lung sounds; Negative for rales, rhonchi or wheezes Cardio regular rate and regular rhythm GI normal to inspection, nondistended, normoactive bowel sounds Extremity no clubbing, cyanosis or edema Skin no rashes or lesions noted Neuro moves all extremities and no focal motor deficits Psych cooperative and affect normal Charges/Coding Visit Charges Inpatient E&M: 85600 Subs Hosp L2
[2021-07-20] VITALS (11 sets, daily range): BP systolic 114–139; BP diastolic 80–98; PULSE 53–116; RESP 16–18; TEMP 36.4–36.7; O2SAT 6–96
[2021-07-20 07:27] LABS: Hematocrit 43.4 % (40-54); Hemoglobin 14.2 g/dL (13.0-16.5); Mean Corp Hgb Conc 32.7 g/dL (32-36); Mean Corpuscular Hgb 31.1 pg (27.0-32.0); Mean Platelet Vol. 10.1 fl (6.2-12.0); POSITIVE COUNT YES; POSITIVE MORPHOLOGY YES; Platelet Count 432 K/mm3 (150-450); RBC Distribution Width CV 13.3 % (11.6-14.6); RBC Distribution Width SD 46.9 fl (35.1-43.9); Red Blood Count 4.57 M/mm3 (4.6-6.2); White Blood Count 15.8 K/mm3 (4.4-11.0)
[2021-07-20 07:30] LABS: Differential Indicated MANUAL DIFF
[2021-07-20 08:17] LABS: Lymphocyte 14 % (19-41); Metamyelocyte 5 % (0-1); Monocyte 2 % (0-10); Myelocyte 1 % (0-0); Neutrophil-Band 1 % (0-5); Neutrophil-Segmented 77 % (47-70); Platelet Estimate ADEQUATE (ADEQ); Red Cell Morphology NORM C+C NORMAL (NORM C&C); Total Cells Counted 100 (MANUAL DIFF)
[2021-07-20 08:18] LABS: Absolute Lymphocyte Count 2.21 X10^3/uL (0.83-4.51); Absolute Neutrophil Count 12.3 X10^3/uL (2.0-7.7); Lymphocyte # 2.21 X10^3/ul (0.83-4.51); Neutrophil # 12.32 X10^3/uL (2.7-7.7)
[2021-07-20 08:41] LABS: ALB/GLOB Ratio 0.5 RATIO (0.9-2.4); AST(SGOT) 56 U/L (15-37); Alanine Aminotransfer ALT/SGPT 178 U/L (16-61); Albumin, Serum 2.2 g/dL (3.2-5.0); Alkaline Phosphatase 67 U/L (45-117); Anion Gap 5 (5-15); BUN 29 mg/dL (7-18); BUN/Creat Ratio 30.7 RATIO (10-20); Calcium,Total 8.7 mg/dL (8.5-10.1); Chloride 109 mmol/L (98-107); Creatinine, Serum 0.94 mg/dL (0.70-1.30); EST Glomerular Filtration Rate 84 mL/min (>60); Est Glom Filt Rate - Afr Amer 102 mL/min (>60); Estimated Creatinine Clearance 73.78 ml/min; Globulin 4.4 g/dL (2.2-4.2); Glucose 93 mg/dL (74-106); Potassium 4.5 mmol/L (3.5-5.1); Protein, Total 6.6 g/dL (6.4-8.2); Sodium Level 141 mmol/L (136-145)
[2021-07-20] MEDS: dexAMETHasone 4 MG Tablet 6 MG PO (10:16)
[2021-07-20] MEDS: Enoxaparin 30 MG/0.3 ML Syringe SC (10:19)
--- NOTE | 2021-07-20 11:33 | PCM.DC.SUM ---
Providers Date of Admission: 07/14/21 Primary Care Physician: NORMAN Land Consultations 07/14/21 15:55 Consult: Sales And Marketing Administrator / Pulmonary Medicine Routine Consulting Provider: [facility] Reason for Consult: Covid-19 EMERGENT Consult: No MD Notified: Yes Date Notified: 07/14/21 Time Notified: 17:02 Method of Notification: Text Reason For Visit: RESP FAILURE Diagnosis Discharge Diagnosis (1) Pneumonia due to 2019 novel coronavirus: Status: Acute Code(s): U07.1 - COVID-19; J12.82 - Pneumonia due to coronavirus disease 2018 (2) Acute respiratory failure with hypoxia: Status: Acute Code(s): J96.01 - Acute respiratory failure with hypoxia Medications at Discharge Home Medications dexamethasone 6 mg PO DAILY #3 tab 07/20/21 levofloxacin 750 mg PO DAILY #4 tab 07/20/21 Hospital Course Operations None Procedures None Summary of Care Provided Minutes Spent on Discharge: 45 Hospital Course: Patient is a 65 y/o male with a PMH as outlined who was admitted via the ED on 07/14/2021 with a complaint of shortness of breath which had been going on or ~ 2 weeks prior to admission. He tested positive for COVID at an outside urgent care facility. He admitted to low grade fever and chills as well as diarrhea, and his had also been ill. He denied any dizziness or palpitations. HE was saturating at 82% on room air. Chest x-ray showed bilateral airspace disease. He was admitted and managed for acute hypoxic respiratory failure due to COVID-19 pneumonia. Patient was out of window for remdesivir. He was started on Decadron and breathing treatments and bronchodilators. CTA was also negative for PE. He was also given intermittent diuretics to help maintain euvolemic status. Sputum culture was positive for H. influenzae and strep pneumonia so he was started on IV ceftriaxone and azithromycin. Patient symptoms gradually improved. He did go up to 8 L of oxygen by was gradually weaned down to 3 L of oxygen. He remained stable and was discharged home on 07/20/2021. Patient qualify for 3 L of oxygen at time of discharge. He was discharged home and is to follow-up with his primary care doctor in 1 to 2 weeks. He was discharged on p.o. Levaquin for 3 days to complete a 7-day course of antibiotics. Patient seen and examined prior to discharge. He had no complaints and felt well. Review systems otherwise negative. Labs and vitals reviewed. Home medication reviewed and reconciled. Physical Exam Const alert, oriented x3 and no apparent distress General Appearance: cooperative, comfortable and well kempt Exam Limitations: no limitations HEENT normocephalic, head/scalp atraumatic and moist oral mucous membranes Eyes PERRL and EOMs intact bilaterally Neck no lymphadenopathy Resp Resp Narrative: diminished breath sounds bibasally, no wheezes or crackles. on 3L of oxygen. Cardio regular rate, regular rhythm, S1 normal heart sound, S2 normal heart sound and no murmurs GI normal to inspection, nondistended, normoactive bowel sounds, soft to palpation, non-tender and non-distended Extremity normal to inspection, full ROM and no clubbing, cyanosis or edema Skin no rashes or lesions noted Neuro oriented x3, CN's II-XII intact bilaterally and moves all extremities Sensorium / Orientation: awake and alert Psych affect normal Weight / BMI Weight Weight: 217 lb 6.012 oz Body Mass Index (BMI) 32.7 ABG / Lab / Microbiology Data Result Diagrams: 07/20/21 06:35 07/20/21 07:50 Laboratory: Laboratory Results - last 24 hr 07/20/21 06:35: WBC 15.8 H, RBC 4.57 L, Hgb 14.2, Hct 43.4, MCV 95.0 H, MCH 31.1, MCHC 32.7, RDW Std Deviation 46.9 H, RDW Coeff of Uli 13.3, Plt Count 432, MPV 10.1, Neut % (Auto) Not Reportable, Absolute Neuts (auto) 12.3 H, Absolute Lymphs (auto) 2.21, Total Counted 100, Neutrophils % (Manual) 77 H, Band Neutrophils % 1, Lymphocytes % (Manual) 14 L, Monocytes % (Manual) 2, Metamyelocytes % 5 H, Myelocytes % 1 H, Diff Path Review May foll, Platelet Estimate ADEQUATE, RBC Morphology NORM C+C 07/20/21 06:35: Sodium Cancelled, Potassium Cancelled, Chloride Cancelled, Carbon Dioxide Cancelled, Anion Gap Cancelled, BUN Cancelled, Creatinine Cancelled, Estim Creat Clear Calc Cancelled, Est GFR (MDRD) Af Amer Cancelled, Est GFR (MDRD) Non-Af Cancelled, BUN/Creatinine Ratio Cancelled, Glucose Cancelled, Calcium Cancelled, Total Bilirubin Cancelled, AST Cancelled, ALT Cancelled, Alkaline Phosphatase Cancelled, Total Protein Cancelled, Albumin Cancelled, Globulin Cancelled, Albumin/Globulin Ratio Cancelled 07/20/21 07:50: Sodium 141, Potassium 4.5, Chloride 109 H, Carbon Dioxide 27.0, Anion Gap 5, BUN 29 H, Creatinine 0.94, Estim Creat Clear Calc 73.78, Est GFR (MDRD) Af Amer 102, Est GFR (MDRD) Non-Af 84, BUN/Creatinine Ratio 30.7 H, Glucose 93, Calcium 8.7, Total Bilirubin 0.40, AST 56 H, ALT 178 H, Alkaline Phosphatase 67, Total Protein 6.6, Albumin 2.2 L, Globulin 4.4 H, Albumin/Globulin Ratio 0.5 L Microbiology: Microbiology 07/14/21 13:40 Blood Culture (Wb) - Left Hand Blood Culture - Final No growth in 5 days. 07/14/21 21:00 Sputum, Expectorated/Coughed Gram Stain - Final 07/14/21 21:00 Sputum, Expectorated/Coughed Respiratory Culture - Final Haemophilus influenzae Streptococcus pneumoniae 07/14/21 20:15 Stool Enteric Bacteriology - Final 07/14/21 20:15 Stool C. difficile DNA Amplification - Final 07/14/21 16:10 Mucosa - Nasopharyngeal Respiratory Panel (PCR) - Final 07/14/21 17:25 Urine, Clean Catch Legionella Antigen - Final 07/14/21 17:25 Urine, Clean Catch Streptococcus pneumoniae Antigen (M - Final 07/14/21 15:54 Nasal Secretion SARS-CoV-2 Antigen (Rapid) - Final SARS-CoV-2 (COVID 19) D/C Instructions Discharge Diet: Low fat / Low cholesterol Discharge Activity: Return to Normal Activity Weight Bearing Status: Weight bearing as tolerated Call your doctor if you observe: Fever of 101 or Higher, Shortness of breath, Dizziness, Swelling in the ankles, Chest pain and Increased palpitations (irregular heartbeat) Meaningful Use Info Meaningful Use Diagnoses (Choose all that apply): None applicable Discharge Plan Admission Admit Date/Time: 07/14/21 15:10 Primary Reason for Your Visit: acute hypoxic respiratory failure due to COVID 19 pneumonia Attending Provider: Shira Combs Primary Care Provider: Silvana Langley NP Consulting Providers: Nikita Lau ; Joni Walden ; Mary Gustafson MICRO COMPUTER SPECIALIST Instructions Patient Instructions: Coronavirus Disease 2019 (COVID-19): Overview, Coronavirus Disease 2019 (COVID-19): Caring for Yourself or Others Additional Instructions / Restrictions: Patient Problems: Altered Health Status related to Hospitalization Patient Goals: *Optimal Level of Health *Keep Appointments *Medication Compliance *Remain Safe Discharge Orders/Prescriptions Prescriptions: New dexamethasone 6 mg tablet 6 mg PO DAILY Qty: 3 RF: 0 levofloxacin 750 mg tablet 750 mg PO DAILY Qty: 4 RF: 0 Referrals / Follow Up: Joni Walden DO [STAFF PHYSICIAN] - Within 2 Weeks Silvana Langley NP, MICRO COMPUTER SPECIALIST-C [Primary Care Provider] - Within 2 Weeks Disposition Disposition (needs filled in before D/C Order can be placed): Home, Self Care Charges/Coding Visit Charges Inpatient E&M: 30343 Disch Hosp
--- NOTE | 2021-07-20 14:17 | CASEMGMT ---
Addendum entered by Justina Joiner 07/20/21 16:23: 1428- Received call from Berny from [facility]. States that they do not have SN to start until the and SN has to be first dicipline to SOC. Aware this engineering writer added on to just check d/t high oxygen/respiratory demand but PT is main discipline. States if modify order to PT- can SOC tomorrow and they can then add on SN later. Agreed to plan with [facility] PT Soc tomorrow 07.21.21. Updated order faxed to Berny. Berny # [phone]. TESSA Miller Original Note: RNMAMIE DC Note S/w patient at bedside- agreeable to DC Plan for today and [facility] for oxygen. Faxed Inquiry. Called [facility] at 1402 and s/w Celi- confirmed received fax and Crystal set up for delivery. [facility] here in hospital at 1418 delivering now. Faxed HH for SN and PT to [facility]. Called and s/w Mansoor in intake at 1411- Confirmed received fax and states the care team will review and call this engineering writer back and let know if can start care. TESSA Miller
[2021-07-20 14:28] LABS: Pathologist Review Reviewed
--- NOTE | 2021-07-20 15:01 | NURSING ---
Called pt's daughter Melissa to update that pt is d/c. Melissa will slat pickler pt after she gets her mom home from the dr's. office.
[2021-07-23 12:57] LABS: Pathologist Review Reviewed
--- NOTE | 2021-07-24 10:24 | CASEMGMT ---
RN CM Discharge COVID F/U Phone Call LACE: 7 Strata: 2 Discharge date: 07/20/21 Call date: 07/24/21 Call time: 1025 Attempted to reach pt without success, message left for pt to call this RN CM back. SStaten RN CM Admission dx: Resp failure, COVID
== END 2021-07-20 17:00 | disposition home or self-care (01) | DRG 177 ==
LOC: ED 15:13 → ICU 15:20 → PCU 07-15 23:17
PROVIDERS: Internal Medicine; Admitting Provider Internal Medicine; Emergency Provider Emergency Medicine; PCP Nurse Practitioner Primary Care; Visit Provider Student in an Organized Health Care Education/Training Program
DX: U07.1 COVID-19 (principal); J12.82 Pneumonia due to coronavirus disease 2019; J96.01 Acute respiratory failure with hypoxia; J13 Pneumonia due to Streptococcus pneumoniae; I10 Essential (primary) hypertension; R19.7 Diarrhea, unspecified; B96.3 Hemophilus influenzae [H. influenzae] as the cause of diseases classified elsewhere; Z66 Do not resuscitate; Z23 Encounter for immunization; Z90.5 Acquired absence of kidney
CPT/HCPCS: 36415; 71045; 71275; 80048; 80053; 82550; 83605; 83615; 83735; 83880; 84100; 84145; 84484; 85025; 85379; 85384; 86140; 87040; 87070; 87077; 87186; 87205; 87426; 87449; 87493; 87506; 87633; 93005; 94640; 94762; 97110; 97162; 97166; 97530; 97535; 97802; 99251; 99285; G0008; J7030; J7040; Q9967; 90686; A4216; G0463; J0696; J1940